=== PATIENT | male | born 1935 | race Caucasian/White ===

== ENCOUNTER 2022-05-26 10:34 | Inpatient (IN) | payer MEDICARE, SELFPAY ==
--- NOTE | ~2022-05-26 | US_ITS ---
EXAMINATION: US renal BI DATE: 06/04/2022 13:32 INDICATION: janine TECHNIQUE: Multiple grayscale and Doppler ultrasound images of the kidneys were obtained. COMPARISON: MRI abdomen 05/29/2022, CT abdomen and pelvis 05/26/2022 FINDINGS: The right kidney measures 12.4 x 8.5 x 9.3 cm., Which is an overestimate of renal size as it included the large parapelvic renal cysts. Approximately 2 cm simple right upper pole cyst. The left kidney m easures 12.5 x 5.8 x 5.8 cm. Right renal atrophy and cortical thinning, with normal parenchymal echog enicity. The left kidney demonstrates normal parenchymal echogenicity. There is no hydronephrosis. Th e bladder wall is thickened. Bilateral ureteral jets. Enlarged prostate. IMPRESSION: Large right renal parapelvic cysts and a simple upper pole cyst. Right renal atrophy/cortical thinnin g. The left kidney is sonographically normal. Bladder wall thickening likely secondary to outlet comp romise from prostatomegaly. Reviewed, dictated and finalized at location K. F OPERATOR IMPRESSION: Large right renal parapelvic cysts and a simple upper pole cyst. Right renal at rophy/cortical thinning. The left kidney is sonographically normal. Bladder wal l thickening likely secondary to outlet compromise from prostatomegaly.
--- NOTE | ~2022-05-26 | US_ITS ---
Limited Abdominal Sonogram: Real-time sonographic imaging of the right upper quadrant was performed. Clinical History: Jaundice Findings: There is diffuse intrahepatic biliary dilatation. No well delineated hepatic mass identifie d. Main portal vein demonstrates normal direction of flow. The gallbladder is moderately distended, a nd and filled with sludge and small stones. No definite gallbladder wall thickening. The common bile duct measures 9 mm. The visualized pancreas, aorta, and IVC are unremarkable. Impression: Intrahepatic biliary dilatation. Obstructing biliary/hepatic/pancreatic mass is a consideration. CT s can has already been ordered for this patient. Gallbladder sludge and small stones. Reviewed, dictated and finalized at location M. OOR EMERGENCY CARE TECHNICIAN Impression: Intrahepatic biliary dilatation. Obstructing biliary/hepatic/pancreatic mass is a consideration. CT scan has already been ordered for this patient. Gallbladder sludge and small stones.
--- NOTE | ~2022-05-26 | MR_ITS ---
EXAMINATION: MR MRCP wo/w con/w 3D wo ind DATE: 05/29/2022 10:38 INDICATION: Obstructed, bile duct, jaundice TECHNIQUE: Magnetic resonance imaging (MRI) of the abdomen was performed without and with intravenous contrast. Sequences included coronal T2-weighted SS-FSE ARC, coronal T2-weighted FS SS-FSE, coronal T2-weighted 2D FS FIESTA, Water:Coronal LAVA-Flex, sagittal T2-weighted SS-FSE ARC, axial SSFSE ARC, axial 3D DualEcho, axial DWI B=600, axial T1-weighted LAVA, FAT:Coronal LAVA-Flex, and coronal in and opposed phase LAVA-Flex. Thick-slab T2-weighted FRFSE-XL images were obtained for magnetic resonance cholangiopancreatography (MRCP). Maximum intensity projection 3-D reconstructions of the volumetric data were created by the technologist. Postcontrast sequences included a time course of axial T1-weig hted LAVA, FAT:Coronal LAVA-Flex, coronal in and opposed phase LAVA-Flex, and Water:Coronal LAVA-Flex . COMPARISON: CT, 05/26/2022 CONTRAST: Multihance, 20 cc FINDINGS: ABDOMEN MRI: There is an ill-defined T1 hypointense, slightly T2 hyperintense infiltrative mass at th e liver hilum which measures approximately 6.3 cm. The mass infiltrates into the retroperitoneum and encases the common hepatic artery and the gastroduodenal artery, and abuts or encases the right renal artery. The mass abuts the inferior vena cava. Although limited by motion artifact, there appears to be mass effect and/or encasement of the portal vein. The spleen, pancreas, and adrenal glands are no rmal. The gallbladder is hypointense T2-weighted images, likely due to sludge. There are peripelvic c ysts of the right kidney. Cysts of the kidneys measure up to 2 cm on the right. There are peritoneal soft tissue masses with a large number of masses seen in the left upper quadrant. ABDOMEN MRCP: There is marked intrahepatic biliary dilatation caused by the mass of the liver hilum. The pancreatic duct is normal in course and caliber. IMPRESSION: 1. Infiltrating mass of the liver hilum causing marked intrahepatic biliary dilatation. Findings susp icious for cholangiocarcinoma. 2. Peritoneal carcinomatosis with multiple left upper quadrant masses. Reviewed, dictated and finalized at location B. MOBILE DRIVERS IMPRESSION: 1. Infiltrating mass of the liver hilum causing marked intrahepatic biliary dil atation. Findings suspicious for cholangiocarcinoma. 2. Peritoneal carcinomatosis with multiple left upper quadrant masses.
--- NOTE | ~2022-05-26 | CT_ITS ---
EXAMINATION: CT abdomen pelvis wo con DATE: 05/26/2022 14:11 INDICATION: Jaundice. TECHNIQUE: Computed tomography (CT) of the abdomen and pelvis was performed without intravenous contr ast. Automated exposure control and iterative reconstruction technique were employed. The dose-length product was 1230.35 mGy-cm. COMPARISON: CT abdomen and pelvis 02/18/2016 FINDINGS: The visualized portions of the lung bases demonstrate peripheral septal thickening, likely mild chronic interstitial lung disease. There is a chronic 5 mm nodule in right lower lobe, likely be nign. No pleural effusion. The heart size is normal. There are coronary artery calcifications. There are calcifications of the coronary arteries. No pericardial effusion. There are chronic cysts in left hepatic lobe measuring up to 2.7 cm. There are calcifications associated with cysts. There is severe intrahepatic biliary duct dilatation with areas of intrahepatic biliary stenosis. The common duct is dilated to 16 mm. There is hyperdense material in the gallbladder, likely sludge. The gallbladder is normal in size. The spleen, pancreas, and adrenal glands are normal. There are cysts in the kidneys measuring up to 7.4 cm on the right. There is cortical thinning in right kidney. 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 The prostate is moderately enlarged. There is diverticulosis of the colon without evidence of diverticulitis. There are no dilated loops of bowel. The appendix is no t visualized. There is a left inguinal hernia containing fat. There are multiple peritoneal masses me asuring up to 2.8 x 2.1 cm, worst in left upper quadrant. There is a 2.8 x 1.9 cm mass posterior to t he inferior vena cava. There is periportal lymphadenopathy. There is no free intraperitoneal fluid. T here is a total right hip arthroplasty. There is severe lumbar spondylosis. There are bridging endpla te osteophytes at multiple levels in the thoracic spine, consistent with diffuse idiopathic skeletal hyperostosis (DISH). IMPRESSION: 1. Peritoneal carcinomatosis. 2. Severe intrahepatic biliary duct dilatation. Areas of intrahepatic biliary stenosis suggest occult malignancy. Extrahepatic bile duct dilatation. Consider MRCP without and with contrast. 3. Periportal lymphadenopathy. Reviewed, dictated and finalized at location A. AGE MACHINE OPERATOR IMPRESSION: 1. Peritoneal carcinomatosis. 2. Severe intrahepatic biliary duct dilatation. Areas of intrahepatic biliary s tenosis suggest occult malignancy. Extrahepatic bile duct dilatation. Consider MRCP without and with contrast. 3. Periportal lymphadenopathy.
[2022-05-26 10:58] VITALS: BP 117/61; PULSE 111; RESP 18; TEMP 36.4; O2SAT 100
[2022-05-26 11:57] LABS: Basophils Absolute Auto 0.1 K/mm3 (0.0-0.1); Basophils Percent Auto 0.8 % (0.2-1.2); Eosinophils Percent Auto 0.1 % (0-4.4); Hematocrit 34.9 % (42.0-52.0); Hemoglobin 11.6 g/dL (14.0-18.0); Immature Granulocyte Percent A 1.4 % (0-0.5); Lymphocytes Absolute Auto 1.38 K/mm3 (0.9-3.2); Mean Corpuscular HGB Conc 33.2 g/dl (32-36); Mean Corpuscular Hemoglobin 30.1 pg (26-34); Mean Corpuscular Volume 90.4 fl (80-100); Mean Platelet Volume 10.5 fl (7.4-10.4); Monocytes Absolute Auto 0.8 K/mm3 (0.1-0.6); Monocytes Percent Auto 10.7 % (2.6-8.5); Platelet Count Result 316 k/mm3 (150-375); Red Blood Count 3.86 M/mm3 (4.6-6.20); Red Cell Distribution Width 21.6 % (11.5-14.5); White Blood Count 7.3 K/mm3 (4.5-10.0)
[2022-05-26 12:10] LABS: Add Urine Microscopic? YES; Appearance Urine Clear (Clear); Color Urine Orange (Yellow); Mucus Urine Rare /lpf; RBC Urine 0-2 /hpf (0-2); WBC Urine 0-3 /hpf
[2022-05-26 12:16] LABS: Alanine Aminotransferase 430 U/L (6-50); Albumin Level 3.9 g/dL (3.5-5.1); Alkaline Phosphatase 1118 U/L (38-126); Anion Gap 9 mmol/L (8-16); Aspartate Amino Transferase 316 U/L (17-59); Bilirubin,Total 18.9 mg/dL (0.2-1.3); Blood Urea Nitrogen 28 mg/dL (9-20); Calcium 9.1 mg/dL (8.4-10.2); Carbon Dioxide 22 mmol/L (22-30); Chloride 98 mmol/L (98-107); Estimated CRCL calculation 48 ml/min; Estimated Glomerular Filt Rate 57; Glucose 133 mg/dL (65-110); Lipase 58 U/L (23-300); Potassium 3.5 mmol/L (3.4-5.0); Sodium 129 mmol/L (137-145)
--- NOTE | 2022-05-26 14:04 | ED.RECABL ---
HPI - Recheck/Abnormal Lab/Rx General Chief Complaint: Recheck/Abnormal Lab/Rx Stated Complaint: elevated liver enzymes Time Seen by Provider: 05/26/22 13:20 History of Present Illness HPI narrative: Pt presents for evaluation of elevated liver enzymes. Pt says he first noticed his urine being yellow a month ago. Pt was put on bactrim for presumed UTI and had allergic reaction and his lips swelled up and the antibiotic was discontinued. Pt says the yellow skin and itching worsened. Pt denies pain or fever. Pt sent to ER after outpatient labs showed elevated LFT's Related Data Home Medications Medication Instructions Recorded Confirmed vit C 50 mg-E 15 unit-zinc cit 4.5 2 tablet PO DAILY 06/17/19 05/26/22 mg-lutein 2.5 mg-zeaxan chew tablet ([employer]) finasteride 5 mg tablet 5 mg PO DAILY 05/26/22 05/26/22 lisinopril 20 1 tablet PO DAILY 05/26/22 05/26/22 mg-hydrochlorothiazide 12.5 mg tablet Allergies Allergy/AdvReac Type Severity Reaction Status Date / Time Sulfa (Sulfonamide Allergy Severe Swelling Verified 05/26/22 06:59 Antibiotics) of Lip/Tongue/Throat Iodinated Contrast Media Allergy Mild lip Verified 05/26/22 06:59 swelling iodine AdvReac Unknown lip Verified 05/26/22 06:59 swelling tramadol AdvReac Itching Verified 05/26/22 06:59 Review of Systems Review of Systems: All systems reviewed & are unremarkable except as noted in HPI and below PMFSH Past Medical History Medical History Chronic kidney disease, stage III (moderate) Essential hypertension Mixed hyperlipidemia Presence of intraocular lens Surgical History Surgical History Hx of cataract removal with insertion of prosthetic lens Family History Family History Father Patient's father is in good health Acute myocardial infarction Sibling Patient's sister is in good health Mother Family history of cardiovascular disease Social History Social History (Updated 05/26/22 @ 07:06 by Alvina Botello CNA) Smoking status: Former smoker Tobacco type: cigarettes Second hand tobacco smoke exposure: No Smoking end date: 04/23/89 Alcohol intake: never Substance use: never Lack of Transportation: No Lack of Food: Never True Current Housing: I Have Housing Concerned About Future Housing: No Difficulty Paying Gas/Electric Bills: No Difficulty Paying for Meds: No Currently Unemployed: No Education: Trade/Vocational Certificate Difficulty w/ Childcare or Family Care: No Living arrangements: with family Occupation/Education: retired Gender identity (if verbalized by the patient): Male Sexual Orientation (if Verbalized by the Patient): Straight or Heterosexual Spiritual care concerns: No Exam Const: General: healthy appearing and no acute distress Nutritional Appearance: well nourished Orientation/consciousness: patient oriented x3 Limitations: no limitations HENMT: Head: normal to inspection Mouth: Yes Normal oral and palatal mucosa present Throat: posterior oropharynx normal Eyes: Conjunctivae: conjunctival abnormality (jaundiced) Pupils: Equal, round and reactive pupils present EOM: EOMs intact bilaterally Neck: Neck: normal visual inspection and no lymphadenopathy Resp: Effort & Inspection: normal respiratory effort Auscultation: clear to auscultation bilaterally Cardio: Rate: regular rate Rhythm: regular rhythm GI: GI Palp: Yes Soft to palpation and No Tenderness to palpation present (GI) Auscultation: normal bowel sounds Skin: General skin exam: jaundice Rashes: no rashes Wounds: no wounds Neuro: General: patient oriented x3, moves all extremities, no meningeal signs, no focal motor deficits and CN's II-XI intact bilaterally Cranial nerves: Yes Nystagmus not present Speech: normal s
[2022-05-26 15:48] LABS: Influenza A QL RT-PCR Negative (Negative); Influenza B QL RT-PCR Negative (Negative); SARS-CoV-2 RNA PCR Negative
--- NOTE | 2022-05-26 17:00 | PM.IMHP ---
H&P: HPI History of Present Illness Date/Time: 05/26/22 17:00 Chief Complaint: Elevated liver enzymes. Narrative: This is a very pleasant 87-year-old male with hypertension, chronic kidney disease, and benign prostatic hyperplasia who presented to the emergency department for evaluation of elevated liver enzymes. Patient provides the following history. About a month or so he noticed that his urine was darker than normal and he saw Dr. Bonds a couple of weeks ago for evaluation of the same. He was apparently diagnosed with urinary tract infection and prescribed Bactrim which he took for at least 5 days before he developed swelling of the lips. The antibiotic was discontinued and does not look like he was started on a new medication. Since that time he has continued to notice that his urine is dark and more recently he and his have noticed that his skin has turned yellow. This prompted labs to be done today and he was found to have significant elevation in his bilirubin and alkaline phosphatase. He has had some pruritus and is taking Benadryl for that at home. He has not had abdominal pain, bloating, nausea, vomiting, or diarrhea. 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 No significant bleeding or bruising. Weight has remained stable. Appetite is fine. Labs in the ED confirmed significantly elevated LFTs with a total bilirubin of 18.9, AST 316, ALT 430, alkaline phosphatase 1118. CT of the abdomen pelvis showed severe intrahepatic biliary duct dilatation with areas of biliary stenosis suggestive of occult malignancy, extrahepatic bile duct dilatation, and peritoneal carcinomatosis. Transfer was initiated to tertiary care facility though estimated wait time for a bed is between 5 to 7 days. Review of Systems Review of Systems: Twelve systems were reviewed and are negative except for as per HPI. [facility] Past Medical History Medical History (Updated 05/26/22 @ 22:02 by Julissa Godwin PA-C) Arthritis Benign prostatic hyperplasia Chronic kidney disease, stage III (moderate) Essential hypertension Mixed hyperlipidemia Surgical History Surgical History (Updated 05/26/22 @ 22:02 by Julissa Godwin PA-C) History of appendectomy History of cataract extraction with lens replacement History of lumbar surgery History of total right hip arthroplasty Family History Family History Father Patient's father is in good health Acute myocardial infarction Sibling Patient's sister is in good health Mother Family history of cardiovascular disease Social History Social History (Updated 05/26/22 @ 21:58 by Julissa Godwin PA-C) Social History: Surrogate medical decision maker: Mikki Garcia, spouse. Code status: Full code. Smoking status: Former smoker Tobacco type: cigarettes Second hand tobacco smoke exposure: No Smoking end date: 04/23/89 Alcohol intake: never Substance use: never Lack of Transportation: No Lack of Food: Never True Current Housing: I Have Housing Concerned About Future Housing: No Difficulty Paying Gas/Electric Bills: No Difficulty Paying for Meds: No Currently Unemployed: No Education: Trade/Vocational Certificate Difficulty w/ Childcare or Family Care: No Living arrangements: with family Additional living arrangements comments: Lives with in [place]. Enjoys woodworking and making furniture. Occupation/Education: retired Spiritual care concerns: No Meds Home Medications and Allergies Home Medications Medication Instructions Recorded Confirmed Type vit C 50 mg-E 15 unit-zinc cit 4.5 2 tablet PO DAILY 06/17/19 05/26/22 History mg-lutein 2.5 mg-zeaxan chew tablet ([employer]) finasteride 5 mg tablet 5 mg PO DAILY 05/26/22 05/26/22 History lisinopril 20 1 tablet PO DAILY 05/26/22 05/26/22 History mg-hydrochlorothiazide 12.5 mg
--- NOTE | 2022-05-26 17:06 | PC.NURSE ---
Spoke to Xiomara with [facility] transport team. Patient is on waiting list and is unknown when a bed will be available. Adrianna Charge nurse notified
--- NOTE | 2022-05-26 19:40 | ADMGEN ---
This patient, Glenis Garcia, was admitted to Medical Room 252-01. Patient/family oriented to hospital policies and general routines including ID bracelet, bed and alarms, visiting hours, pain management, procedures, bathroom and other care routines, personal items, smoking policy, room service/diet, and visiting hours. Information on how to activate the Rapid Response Team has been discussed. Patient/Family are encouraged to report perceived risks to care and to ask questions if they do not understand what they are told or what they should do.
--- NOTE | 2022-05-26 19:51 | PC.NURSE ---
Patient accepted at both [facility] AND [facility]. On waitlist...approximate waitlist time for both facilities is 7 days.
[2022-05-26 21:02] VITALS: BP 127/72; PULSE 88; RESP 16; TEMP 36.7; O2SAT 100
[2022-05-26 21:03] VITALS: BMI 33.8
[2022-05-27 01:41] LABS: Sodium Urine Random 73 meq/L
[2022-05-27 01:44] LABS: Creatinine Urine 86.9 mg/dL; Urea Random Urine 681 MG/DL
[2022-05-27] MEDS: diphenhydrAMINE HCl CAP 25 MG CAPSULE PO ×3 (03:55→23:00)
[2022-05-27 06:00] VITALS: BP 104/60; PULSE 82; RESP 20; TEMP 36.7; O2SAT 100
[2022-05-27 06:20] LABS: Hemoglobin 11.1 g/dL (14.0-18.0); Mean Corpuscular HGB Conc 33.6 g/dl (32-36); Mean Corpuscular Hemoglobin 30.2 pg (26-34); Mean Corpuscular Volume 89.7 fl (80-100); Mean Platelet Volume 10.6 fl (7.4-10.4); Platelet Count Result 321 k/mm3 (150-375); Red Blood Count 3.68 M/mm3 (4.6-6.20); Red Cell Distribution Width 21.8 % (11.5-14.5); White Blood Count 6.8 K/mm3 (4.5-10.0)
[2022-05-27 06:27] LABS: INR 1.1
[2022-05-27 06:33] LABS: Alanine Aminotransferase 428 U/L (6-50); Albumin Level 3.6 g/dL (3.5-5.1); Alkaline Phosphatase 1207 U/L (38-126); Anion Gap 9 mmol/L (8-16); Aspartate Amino Transferase 301 U/L (17-59); Bilirubin,Total 18.8 mg/dL (0.2-1.3); Blood Urea Nitrogen 24 mg/dL (9-20); Carbon Dioxide 24 mmol/L (22-30); Chloride 102 mmol/L (98-107); Estimated CRCL calculation 51 ml/min; Estimated Glomerular Filt Rate > 60; Glucose 95 mg/dL (65-110); Magnesium 1.9 mg/dL (1.6-2.3); Potassium 3.8 mmol/L (3.4-5.0); Sodium 135 mmol/L (137-145)
[2022-05-27 06:58] LABS: Carcinoembryonic Antigen 2.4 ng/mL (0.0-3.0)
[2022-05-27 07:17] LABS: Hepatitis B Surface Antigen Negative (Negative)
[2022-05-27 07:22] LABS: HAV RESULT Negative (Negative); Hepatitis B Core IgM Result Negative (Negative)
[2022-05-27 07:34] LABS: Hepatitis C Virus Antibody Negative (Negative)
[2022-05-27 08:00] VITALS: PULSE 82; RESP 20; O2SAT 100
[2022-05-27] MEDS: lisinopriL 20 MG TABLET PO (08:48)
[2022-05-27] MEDS: FINASTERIDE 5 MG TABLET PO (08:48)
[2022-05-27] MEDS: OPTI-GEN TAB 2 TABLET PO (08:48)
[2022-05-27 14:30] VITALS: BP 106/58; PULSE 81; RESP 16; TEMP 36.4; O2SAT 100
--- NOTE | 2022-05-27 16:19 | PM.IMPN ---
Progress Note: A&P Assessment and Plan (1) Obstructive jaundice: Code(s): K83.1 - Obstruction of bile duct Status: Acute Assessment and Plan: The patient developed pruritis, jaundice and greey colored stools. No weight loss. He was sent to the emergency department after discovering elevated liver enzymes. Liver tests were normal in February. TB 18.9, AST 316, ALT [address] abdomen/pelvis shows peritoneal carcinomatosis and severe intra- and extrahepatic ductal dilation. Rt UQ US showing similar findings Concerning for occult biliary malignancy. Transfer was initiated to a tertiary care facility for hepatobiliary consult and awaiting bed availablility GI consultation here (not available this weekend, will need to be consulted Sunday morning). NPO after midnight on Sunday for possible ERCP on Sunday. 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 Will add cholestyramine. Benadryl available as needed. (4) Transaminitis: Code(s): R74.01 - Elevation of levels of liver transaminase levels Status: Acute Assessment and Plan: Related to above (5) Essential hypertension: Code(s): I10 - Essential (primary) hypertension Status: Acute Assessment and Plan: Patient's blood pressure was reviewed on 2/ Blood pressure soft at times. HCTZ on hold. Will continue current medications. Place parameters on Lisinopril (6) Benign prostatic hyperplasia: Code(s): N40.0 - Benign prostatic hyperplasia without lower urinary tract symptoms Status: Acute Assessment and Plan: Stable. Continue Proscar. Plan DVT Prophylaxis - Lovenox Subjective Date/time seen: 05/27/22 16:19 Interval history: 87yo male with CKD, BPH and HTN here for painless jaundice. Patient has been having martinez colored stools, jaundice and pruritis. No CP or SOB. Exam Narrative: AF 106/58 81 16 100% ra Gen - NARD Chest - CTA bilaterally, nml RR CV - RRR S1/S2 Abd - Soft, NT/ND, Positive BS Ext - No pedal edema Psych - Nml mood and affect. ABSENTEE-SHAWNEE Skin - Warm and dry, jaundiced Objective Data Vital Signs Vital Signs: Vital Signs - 24 hr 05/26/22 21:02 05/26/22 20:00 05/27/22 06:00 Temperature 98.1 F 98.1 F Pulse Rate 88 82 Respiratory Rate 16 20 Blood Pressure 127/72 104/60 Pulse Oximetry 100 100 Oxygen Delivery Room Air 05/27/22 08:00 05/27/22 14:30 Temperature 97.6 F Pulse Rate 82 81 Respiratory Rate 20 16 Blood Pressure 106/58 L Pulse Oximetry 100 100 Oxygen Delivery Room Air Intake/Output Intake/Output: Intake & Output 05/24/22 05/25/22 05/26/22 05/27/22 23:59 23:59 23:59 23:59 Intake Total 500 460 Output Total 200 Balance 300 460 Meds/Results Medications: Active Medications Generic Name Dose Route Start Last Admin Trade Name Emmanuelq PRN Reason Stop Dose Admin Diphenhydramine HCl 25 mg 05/26/22 22:09 05/27/22 03:55 Diphenhydramine Hcl Cap 25 Mg Capsule PO 25 mg Q6H PRN Administration Itching Finasteride 5 mg 05/27/22 09:00 05/27/22 08:48 Finasteride 5 Mg Tablet PO 5 mg DAILY LUCINDA Administration Hydrochlorothiazide 12.5 mg 05/27/22 09:00 Hydrochlorothiazide 12.5 Mg Capsule PO DAILY LUCINDA Lisinopril 20 mg 05/27/22 09:00 05/27/22 08:48 Lisinopril 20 Mg Tablet PO 06/26/22 08:59 20 mg DAILY LUCINDA Administration Multivitamins/Minerals 2 tablet 05/27/22 09:00 05/27/22 08:48 Opti-Gen Tab PO 06/26/22 08:59 2
[2022-05-27] MEDS: ENOXAPARIN 40 MG/0.4 ML SYRINGE SUB-Q (18:01)
[2022-05-27] MEDS: CHOLESTYRAMINE (W/ SUGAR) 4 GM POWD.PACK PO (18:01)
[2022-05-27 22:00] VITALS: BP 135/77; PULSE 87; RESP 14; TEMP 37.3; O2SAT 100
[2022-05-28] MEDS: diphenhydrAMINE HCl CAP 25 MG CAPSULE PO ×3 (06:00→23:13)
[2022-05-28 06:17] LABS: Basophils Absolute Auto 0.1 K/mm3 (0.0-0.1); Eosinophils Percent Auto 0.7 % (0-4.4); Hematocrit 29.8 % (42.0-52.0); Hemoglobin 10.1 g/dL (14.0-18.0); Immature Granulocyte Absolute 0.09 K/mm3 (0.00-0.031); Immature Granulocyte Percent A 1.5 % (0-0.5); Lymphocytes Absolute Auto 1.28 K/mm3 (0.9-3.2); Mean Corpuscular HGB Conc 33.9 g/dl (32-36); Mean Corpuscular Hemoglobin 29.7 pg (26-34); Mean Corpuscular Volume 87.6 fl (80-100); Mean Platelet Volume 10.6 fl (7.4-10.4); Monocytes Absolute Auto 0.9 K/mm3 (0.1-0.6); Monocytes Percent Auto 13.9 % (2.6-8.5); Neutrophils Absolute Auto 3.8 K/mm3 (1.3-6.7); Neutrophils Percent Auto 61.9 % (45.5-73.1); Platelet Count Result 298 k/mm3 (150-375); Red Cell Distribution Width 22.2 % (11.5-14.5); White Blood Count 6.1 K/mm3 (4.5-10.0)
[2022-05-28 06:23] LABS: Alanine Aminotransferase 347 U/L (6-50); Albumin Level 3.1 g/dL (3.5-5.1); Alkaline Phosphatase 1016 U/L (38-126); Anion Gap 7 mmol/L (8-16); Aspartate Amino Transferase 268 U/L (17-59); Bilirubin,Total 17.2 mg/dL (0.2-1.3); Blood Urea Nitrogen 24 mg/dL (9-20); Calcium 8.5 mg/dL (8.4-10.2); Carbon Dioxide 23 mmol/L (22-30); Chloride 102 mmol/L (98-107); Estimated CRCL calculation 51 ml/min; Estimated Glomerular Filt Rate > 60; Glucose 87 mg/dL (65-110); Potassium 3.7 mmol/L (3.4-5.0); Sodium 132 mmol/L (137-145)
[2022-05-28 06:46] LABS: Platelet Estimate Adequate (Adequate); Schistocytes None Seen (NORMAL); Spherocytes 1+ (NORMAL); Target Cells 1+ (NORMAL)
--- NOTE | 2022-05-28 09:13 | PC.NURSE ---
This nurse was instructed by Dr. mobley to hold patient's AM Lisinopril due to soft blood pressures.
[2022-05-28] MEDS: FINASTERIDE 5 MG TABLET PO (09:16)
[2022-05-28] MEDS: OPTI-GEN TAB 2 TABLET PO (09:16)
[2022-05-28] MEDS: CHOLESTYRAMINE (W/ SUGAR) 4 GM POWD.PACK PO ×2 (10:18→17:19)
[2022-05-28 10:39] VITALS: O2SAT 98
--- NOTE | 2022-05-28 11:43 | PM.IMPN ---
Progress Note: A&P Assessment and Plan (1) Obstructive jaundice: Code(s): K83.1 - Obstruction of bile duct Status: Acute Assessment and Plan: The patient developed pruritis, jaundice and bacon colored stools. No weight loss. He was sent to the emergency department after discovering elevated liver enzymes. Liver tests were normal in February. TB 18.9, AST 316, ALT [address] abdomen/pelvis shows peritoneal carcinomatosis and severe intra- and extrahepatic ductal dilation. RUQ US showing similar findings Concerning for occult biliary malignancy. Transfer was initiated to a tertiary care facility for hepatobiliary consult and awaiting bed availability Proceed with MRCP to further assess anatomy. GI consultation here (not available this weekend, will need to be consulted Sunday morning). NPO after midnight on Sunday for possible ERCP on Sunday. 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 Continue cholestyramine. Benadryl available as needed. (4) Transaminitis: Code(s): R74.01 - Elevation of levels of liver transaminase levels Status: Acute Assessment and Plan: Related to above and levels about the same (5) Essential hypertension: Code(s): I10 - Essential (primary) hypertension Status: Acute Assessment and Plan: Patient's blood pressure was reviewed on 05/28 Blood pressure soft at times. HCTZ stopped. Will cut back Lisinopril (6) Benign prostatic hyperplasia: Code(s): N40.0 - Benign prostatic hyperplasia without lower urinary tract symptoms Status: Acute Assessment and Plan: Stable. Continue Proscar. Plan DVT Prophylaxis - Lovenox Subjective Date/time seen: 05/28/22 11:43 Interval history: 87yo male with CKD, BPH and HTN here for painless jaundice. No issues overnight. pruritus is about the same. No chest pain or shortness of breath. No abdominal pain. Exam Narrative: AF 135/77 87 14 98% ra Gen - NARD Chest - CTA bilaterally, nml RR CV - RRR S1/S2 Abd - Soft, NT/ND, Positive BS Ext - No pedal edema Psych - Nml mood and affect. MODOC Skin - Warm and dry, jaundiced Objective Data Vital Signs Vital Signs: Vital Signs - 24 hr 05/27/22 14:30 05/27/22 22:00 05/28/22 10:27 Temperature 97.6 F 99.1 F Pulse Rate 81 87 Respiratory Rate 16 14 Blood Pressure 106/58 L 135/77 Pulse Oximetry 100 100 Oxygen Delivery Room Air 05/28/22 10:39 Temperature Pulse Rate Respiratory Rate Blood Pressure Pulse Oximetry 98 Oxygen Delivery Room Air Intake/Output Intake/Output: Intake & Output 05/25/22 05/26/22 05/27/22 05/28/22 23:59 23:59 23:59 23:59 Intake Total 500 2140 340 Output Total 200 Balance 300 2140 340 Meds/Results Medications: Active Medications Generic Name Dose Route Start Last Admin Trade Name Freq PRN Reason Stop Dose Admin Cholestyramine Resin 4 gm 05/27/22 18:00 05/28/22 10:18 Cholestyramine (W/ Sugar) 4 Gm Powd.Pack PO 4 gm BID@1000,1800 LUCINDA Administration Diphenhydramine HCl 25 mg 05/26/22 22:09 05/28/22 06:00 Diphenhydramine Hcl Cap 25 Mg Capsule PO 25 mg Q6H PRN Administration Itching Enoxaparin Sodium 40 mg 05/28/22 17:00 Enoxaparin 40 Mg/0.4 Ml Syringe SUB-Q DAILY@1700 LUCINDA Finasteride 5 mg 05/27/22 09:00 05/28/22 09:16 Finasteride 5 Mg Tablet PO 5 mg DAILY LUCINDA Administration Lisinopril 20 mg 05/27/22 09:00 05/28/22 09:12 Lisinopril 20 Mg Tablet PO 06/26/22 08:
[2022-05-28 11:51] VITALS: BP 130/67; PULSE 81; RESP 18; TEMP 36.7; O2SAT 100
[2022-05-28] MEDS: lisinopriL 10 MG TABLET PO (13:05)
[2022-05-28 15:00] VITALS: BP 116/73; PULSE 69; RESP 16; TEMP 36.6; O2SAT 100
[2022-05-28 20:27] VITALS: BP 119/73; PULSE 80; RESP 20; TEMP 36.8; O2SAT 98
[2022-05-29 05:13] VITALS: BP 116/67; PULSE 69; RESP 20; TEMP 36.1; O2SAT 100
[2022-05-29 05:35] LABS: Basophils Absolute Auto 0.1 K/mm3 (0.0-0.1); Basophils Percent Auto 0.7 % (0.2-1.2); Eosinophils Absolute Auto 0.1 K/mm3 (0-0.3); Eosinophils Percent Auto 0.7 % (0-4.4); Hematocrit 30.5 % (42.0-52.0); Hemoglobin 10.2 g/dL (14.0-18.0); Immature Granulocyte Absolute 0.15 K/mm3 (0.00-0.031); Immature Granulocyte Percent A 2.2 % (0-0.5); Lymphocytes Absolute Auto 1.32 K/mm3 (0.9-3.2); Lymphocytes Percent Auto 19.6 % (18.3-44.2); Mean Corpuscular HGB Conc 33.4 g/dl (32-36); Mean Corpuscular Hemoglobin 30.2 pg (26-34); Mean Corpuscular Volume 90.2 fl (80-100); Mean Platelet Volume 10.1 fl (7.4-10.4); Monocytes Absolute Auto 0.9 K/mm3 (0.1-0.6); Monocytes Percent Auto 13.7 % (2.6-8.5); Neutrophils Absolute Auto 4.2 K/mm3 (1.3-6.7); Neutrophils Percent Auto 63.1 % (45.5-73.1); Platelet Count Result 287 k/mm3 (150-375); Red Blood Count 3.38 M/mm3 (4.6-6.20); Red Cell Distribution Width 22.4 % (11.5-14.5); White Blood Count 6.7 K/mm3 (4.5-10.0)
[2022-05-29 05:52] LABS: Platelet Estimate Adequate (Adequate)
[2022-05-29 05:53] LABS: Poikilocytosis 1+ (NORMAL); Target Cells 2+ (NORMAL)
[2022-05-29 05:55] LABS: Alanine Aminotransferase 356 U/L (6-50); Albumin Level 3.2 g/dL (3.5-5.1); Alkaline Phosphatase 1081 U/L (38-126); Anion Gap 7 mmol/L (8-16); Aspartate Amino Transferase 269 U/L (17-59); Bilirubin,Total 17.4 mg/dL (0.2-1.3); Blood Urea Nitrogen 24 mg/dL (9-20); Calcium 8.4 mg/dL (8.4-10.2); Carbon Dioxide 23 mmol/L (22-30); Chloride 102 mmol/L (98-107); Estimated CRCL calculation 47 ml/min; Estimated Glomerular Filt Rate 57; Glucose 88 mg/dL (65-110); Sodium 132 mmol/L (137-145)
[2022-05-29 05:59] LABS: Schistocytes None Seen (NORMAL)
[2022-05-29] MEDS: lisinopriL 10 MG TABLET PO (08:23)
[2022-05-29] MEDS: OPTI-GEN TAB 2 TABLET PO (08:23)
[2022-05-29] MEDS: FINASTERIDE 5 MG TABLET PO (08:23)
[2022-05-29 08:30] VITALS: BP 120/66
--- NOTE | 2022-05-29 13:09 | WPDGICN ---
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 Etiology unclear. Hopefully with CT guidance of percutaneous biopsy can be arranged. (2) Jaundice: Code(s): R17 - Unspecified jaundice Status: Acute Assessment and Plan: Jaundice appears to be from lesions within the liver. MRCP suggest a liver mass impinging on the hilum of the liver. 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 I do not do stenting at this level within the liver. Recommend transfer to tertiary care [facility] service for ERCP brushings of this lesion, possible biopsy. And stenting if at all possible. I understand this is in progress referral to tertiary care center. (3) Dilated bile duct: Code(s): K83.8 - Other specified diseases of biliary tract Status: Acute Assessment and Plan: Biliary tree appears dilated proximal to the liver hilum in the proximal bile ducts. Most likely from impingement of tumor mass at the hilum. If ERCP and stenting not feasible then external percutaneous biliary drain may be required. GI Consult Note Consult date/time: 05/29/22 13:09 Reason for consult: Jaundice and abnormal CT scan HPI: Glenis Garcia is a 87 year old male I am asked to see because of jaundiced in abnormal CT scan. Patient reports over the last 4 weeks he has noticed yellow skin associated with dark urine. Initially presented to primary care for possible urinary tract infection and saw Urology Service. Laboratory testing ultimately revealed elevated LFTs and for this reason sent to the ER and admitted to the hospital. CT scan imaging reveals carcinomatosis. Liver mass is identified. MRCP today reveals liver mass at the hilum of the liver impinging on the bile ducts with more proximal bile duct dilatation. He also has evidence for carcinomatosis. Patient otherwise is eating well. His bowel habits have remained normal although stools are somewhat light in appearance. Denies any significant abdominal pain he has had only mild weight loss. No fevers are noted. Review of Systems Review of Systems: Review of systems noncontributory. [facility] Past Medical History Medical History (Updated 05/27/22 @ 16:44 by Aquiles Jeffrey MD) Arthritis Benign prostatic hyperplasia Chronic kidney disease, stage III (moderate) Essential hypertension Mixed hyperlipidemia Surgical History Surgical History (Updated 05/26/22 @ 22:02 by Julissa Godwin PA-C) History of appendectomy History of cataract extraction with lens replacement History of lumbar surgery History of total right hip arthroplasty Family History Family History Father Patient's father is in good health Acute myocardial infarction Sibling Patient's sister is in good health Mother Family history of cardiovascular disease Social History Social History (Updated 05/26/22 @ 21:58 by Julissa Godwin PA-C) Social History: Surrogate medical decision maker: Nataliiaamparo Garcia, spouse. Code status: Full code. Smoking status: Former smoker Tobacco type: cigarettes Second hand tobacco smoke exposure: No Smoking end date: 04/23/89 Alcohol intake: never Substance use: never Lack of Transportation: No Lack of Food: Never True Current Housing: I Have Housing Concerned About Future Housing: No Difficulty Paying Gas/Electric Bills: No Difficulty Paying for Meds: No Currently Unemployed: No Education: Trade/Vocational Certificate Difficulty w/ Childcare or Family Care: No Living arrangements: with family Additional living arrangements comments: Lives with in [place]. Enjoys woodworking and making
[2022-05-29 14:00] VITALS: BP 116/64; PULSE 75; RESP 20; TEMP 36.3; O2SAT 100
--- NOTE | 2022-05-29 16:10 | PM.IMPN ---
Progress Note: A&P Assessment and Plan (1) Obstructive jaundice: Code(s): K83.1 - Obstruction of bile duct Status: Acute Assessment and Plan: The patient developed pruritis, jaundice and bacon colored stools. No weight loss. He was sent to the emergency department after discovering elevated liver enzymes. Liver tests were normal in February. TB 18.9, AST 316, ALT [address] abdomen/pelvis shows peritoneal carcinomatosis and severe intra- and extrahepatic ductal dilation. RUQ US showing similar findings Concerning for occult biliary malignancy. MRCP showing infiltrating mass of the liver hilum causing marked biliary dilation and peritoneal carcinomatosis. 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 Continue cholestyramine. Benadryl available as needed. (4) Transaminitis: Code(s): R74.01 - Elevation of levels of liver transaminase levels Status: Acute Assessment and Plan: Related to above and levels about the same (5) Essential hypertension: Code(s): I10 - Essential (primary) hypertension Status: Acute Assessment and Plan: Patient's blood pressure was reviewed on 05/29 Blood pressure stable. Continue Lisinopril (6) Benign prostatic hyperplasia: Code(s): N40.0 - Benign prostatic hyperplasia without lower urinary tract symptoms Status: Acute Assessment and Plan: Stable. Continue Proscar. Plan DVT Prophylaxis - Lovenox Subjective Date/time seen: 05/29/22 16:10 Interval history: 87yo male with CKD, BPH and HTN here for painless jaundice. Pruritus worse last night but better today. No issues overnight.No CP and SOB. Exam Narrative: AF 116/64 75 20 100% ra Gen - NARD Chest - CTA bilaterally, nml RR CV - RRR S1/S2 Abd - Soft, NT/ND, Positive BS Ext - No pedal edema Psych - Nml mood and affect. [place] Skin - Warm and dry, jaundiced Objective Data Vital Signs Vital Signs: Vital Signs - 24 hr 05/28/22 20:27 05/29/22 05:13 05/29/22 08:31 Temperature 98.2 F 97 F L Pulse Rate 80 69 Respiratory Rate 20 20 Blood Pressure 119/73 116/67 Pulse Oximetry 98 100 Oxygen Delivery Room Air 05/29/22 08:30 05/29/22 14:00 Temperature 97.4 F L Pulse Rate 75 Respiratory Rate 20 Blood Pressure 120/66 116/64 Pulse Oximetry 100 Oxygen Delivery Intake/Output Intake/Output: Intake & Output 05/26/22 05/27/22 05/28/22 05/29/22 23:59 23:59 23:59 23:59 Intake Total 500 2140 1570 240 Output Total 200 Balance 300 2140 1570 240 Meds/Results Medications: Active Medications Generic Name Dose Route Start Last Admin Trade Name Freq PRN Reason Stop Dose Admin Cholestyramine Resin 4 gm 05/27/22 18:00 05/29/22 10:00 Cholestyramine (W/ Sugar) 4 Gm Powd.Pack PO Not Given BID@1000,1800 LUCINDA Diphenhydramine HCl 25 mg 05/26/22 22:09 05/28/22 23:13 Diphenhydramine Hcl Cap 25 Mg Capsule PO 25 mg Q6H PRN Administration Itching Enoxaparin Sodium 40 mg 05/28/22 17:00 Enoxaparin 40 Mg/0.4 Ml Syringe SUB-Q DAILY@1700 LUCINDA Finasteride 5 mg 05/27/22 09:00 05/29/22 08:23 Finasteride 5 Mg Tablet PO 5 mg DAILY LUCINDA Administration Lisinopril 10 mg 05/28/22 11:45 05/29/22 08:23 Lisinopril 10 Mg Tablet PO 06/26/22 08:59 10 mg DAILY LUCINDA Administration Multivitamins/Minerals 2 tablet 05/27/22 09:00
[2022-05-29] MEDS: CHOLESTYRAMINE (W/ SUGAR) 4 GM POWD.PACK PO (17:01)
[2022-05-29] MEDS: ENOXAPARIN 40 MG/0.4 ML SYRINGE SUB-Q (17:01)
[2022-05-29 19:59] VITALS: BP 103/62; PULSE 99; RESP 18; TEMP 35.9; O2SAT 100
[2022-05-29] MEDS: diphenhydrAMINE HCl CAP 25 MG CAPSULE PO (21:41)
[2022-05-30 04:37] VITALS: BP 111/73; PULSE 79; RESP 20; TEMP 36.7; O2SAT 99
[2022-05-30 05:49] LABS: Basophils Absolute Auto 0.1 K/mm3 (0.0-0.1); Basophils Percent Auto 0.8 % (0.2-1.2); Eosinophils Absolute Auto 0.1 K/mm3 (0-0.3); Eosinophils Percent Auto 0.8 % (0-4.4); Hematocrit 30.6 % (42.0-52.0); Immature Granulocyte Absolute 0.12 K/mm3 (0.00-0.031); Immature Granulocyte Percent A 1.9 % (0-0.5); Immature Platelet Fraction Pct 4.5 % (0.9-11.2); Lymphocytes Absolute Auto 1.09 K/mm3 (0.9-3.2); Mean Corpuscular HGB Conc 32.7 g/dl (32-36); Mean Corpuscular Hemoglobin 30.2 pg (26-34); Mean Corpuscular Volume 92.4 fl (80-100); Monocytes Absolute Auto 0.9 K/mm3 (0.1-0.6); Monocytes Percent Auto 14.5 % (2.6-8.5); Neutrophils Absolute Auto 4.2 K/mm3 (1.3-6.7); Nucleated Red Blood Cells Perc 0.3 % (0.0-0.2); Platelet Count Result 317 k/mm3 (150-375); Red Blood Count 3.31 M/mm3 (4.6-6.20); Red Cell Distribution Width 21.8 % (11.5-14.5); White Blood Count 6.4 K/mm3 (4.5-10.0)
[2022-05-30 06:00] LABS: INR 1.2; Prothrombin Time 14.9 Seconds (11.1-14.7)
[2022-05-30 06:09] LABS: Alanine Aminotransferase 328 U/L (6-50); Albumin Level 3.3 g/dL (3.5-5.1); Alkaline Phosphatase 1127 U/L (38-126); Anion Gap 6 mmol/L (8-16); Aspartate Amino Transferase 252 U/L (17-59); Bilirubin,Total 18.2 mg/dL (0.2-1.3); Blood Urea Nitrogen 22 mg/dL (9-20); Calcium 8.4 mg/dL (8.4-10.2); Carbon Dioxide 21 mmol/L (22-30); Chloride 101 mmol/L (98-107); Estimated CRCL calculation 51 ml/min; Estimated Glomerular Filt Rate > 60; Glucose 87 mg/dL (65-110); Magnesium 1.9 mg/dL (1.6-2.3); Potassium 3.8 mmol/L (3.4-5.0); Sodium 128 mmol/L (137-145)
[2022-05-30 08:04] VITALS: BP 93/54
[2022-05-30] MEDS: FINASTERIDE 5 MG TABLET PO (08:06)
[2022-05-30] MEDS: OPTI-GEN TAB 2 TABLET PO (08:06)
--- NOTE | 2022-05-30 10:26 | WPDGIPROGNO ---
Progress Note: A&P Assessment and Plan (1) Dilated bile duct: Code(s): K83.8 - Other specified diseases of biliary tract Status: Acute Assessment and Plan: Patient with CT scan imaging showing dilatation of the proximal bile ducts. There is a mass in the liver impinging on the hilum of the biliary tree. This may be a primary cholangiocarcinoma versus metastatic disease. Patient has multiple additional lesions throughout the peritoneal area consistent with carcinomatosis. Given the high location of this obstruction referral to tertiary care center for endoscopic ultrasound and biopsy if necessary and placement of a biliary stent is advised. Biliary obstruction appears to account for Painless jaundice as well as appear right is. Also for darkening of the urine and lightening of his stools. (2) Peritoneal carcinomatosis: Code(s): C78.6 - Secondary malignant neoplasm of retroperitoneum and peritoneum Status: Acute (3) Jaundice: Code(s): R17 - Unspecified jaundice Status: Acute Subjective Date/time seen: 05/30/22 10:26 Interval history: Patient alert comfortable this morning. Tolerated diet last evening. Denies abdominal pain. Review of Systems Review of Systems: Review of systems noncontributory. Exam Narrative: Physical exam reveals patient had marked scleral icterus. Skin is somewhat yellow in color. HEENT exam as stated. Lungs are clear. Heart without murmur. Abdomen bowel sounds present soft and nontender. Objective Data Vital Signs Vital Signs: Vital Signs - 24 hr 05/29/22 14:00 05/29/22 19:59 05/30/22 04:37 Temperature 97.4 F L 96.7 F L 98.1 F Pulse Rate 75 99 79 Respiratory Rate 20 18 20 Blood Pressure 116/64 103/62 111/73 Pulse Oximetry 100 100 99 05/30/22 08:04 Temperature Pulse Rate Respiratory Rate Blood Pressure 93/54 L Pulse Oximetry Intake/Output Intake/Output: Intake & Output 05/27/22 05/28/22 05/29/22 05/30/22 23:59 23:59 23:59 23:59 Intake Total 2140 1570 480 720 Balance 2140 1570 480 720 Meds/Results Medications: Active Medications Generic Name Dose Route Start Last Admin Trade Name Freq PRN Reason Stop Dose Admin Cholestyramine Resin 4 gm 05/27/22 18:00 05/29/22 17:01 Cholestyramine (W/ Sugar) 4 Gm Powd.Pack PO 4 gm BID@1000,1800 LUCINDA Administration Diphenhydramine HCl 25 mg 05/26/22 22:09 05/29/22 21:41 Diphenhydramine Hcl Cap 25 Mg Capsule PO 25 mg Q6H PRN Administration Itching Enoxaparin Sodium 40 mg 05/28/22 17:00 05/29/22 17:01 Enoxaparin 40 Mg/0.4 Ml Syringe SUB-Q 40 mg DAILY@1700 LUCINDA Administration Finasteride 5 mg 05/27/22 09:00 05/30/22 08:06 Finasteride 5 Mg Tablet PO 5 mg DAILY LUCINDA Administration Lisinopril 10 mg 05/28/22 11:45 05/30/22 08:05 Lisinopril 10 Mg Tablet PO 06/26/22 08:59 Not Given DAILY LUCINDA Multivitamins/Minerals 2 tablet 05/27/22 09:00 05/30/22 08:06 Opti-Gen Tab PO 06/26/22 08:59 2 tablet DAILY LUCINDA Administration Radiology Results: ITS Impressions Abdomen/Pelvis CT 05/26/22 14:17 IMPRESSION: 1. Peritoneal carcinomatosis. 2. Severe intrahepatic biliary duct dilatation. Areas of intrahepatic biliary stenosis suggest occult malignancy. Extrahepatic bile duct dilatation. Consider MRCP without and with contrast. 3. Periportal lymphadenopathy. Upper Quadrant Ultrasound 05/26/22 14:31 Impression: Intrahepatic biliary dilatation. Obstructing biliary/hepatic/pancreatic mass is a consideration. CT scan has already been ordered for this patient. Gallbladder sludge and small stones. MRCP 05/29/22 10:57 IMPRESSION: 1. Infiltrating mass of the liver hilum causing marked intrahepatic biliary dilatation. Findings suspicious for cholangiocarcinoma. 2. Peritoneal carcinomatosis with multiple left upper quadrant masses. Labs Labs: Laboratory Results - last 24 hr
[2022-05-30] MEDS: CHOLESTYRAMINE (W/ SUGAR) 4 GM POWD.PACK PO ×2 (10:29→17:49)
--- NOTE | 2022-05-30 11:12 | PM.IMPN ---
Progress Note: A&P Assessment and Plan (1) Obstructive jaundice: Code(s): K83.1 - Obstruction of bile duct Status: Acute Assessment and Plan: The patient developed pruritis, jaundice and bacon colored stools. No weight loss. He was sent to the emergency department after discovering elevated liver enzymes. Liver tests were normal in February. TB 18.9, AST 316, ALT [address] abdomen/pelvis shows peritoneal carcinomatosis and severe intra- and extrahepatic ductal dilation. RUQ US showing similar findings Concerning for occult biliary malignancy. MRCP showing infiltrating mass of the liver hilum causing marked biliary dilation and peritoneal carcinomatosis. Repeat LFTs about the same. 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 Continue cholestyramine. Benadryl available as needed. (4) Transaminitis: Code(s): R74.01 - Elevation of levels of liver transaminase levels Status: Acute Assessment and Plan: Related to above and levels about the same (5) Essential hypertension: Code(s): I10 - Essential (primary) hypertension Status: Acute Assessment and Plan: Patient's blood pressure was reviewed on 05/30 Blood pressure too low. Will stop Lisinopril. (6) Benign prostatic hyperplasia: Code(s): N40.0 - Benign prostatic hyperplasia without lower urinary tract symptoms Status: Acute Assessment and Plan: Stable. Continue Proscar. Plan DVT Prophylaxis - Lovenox Subjective Date/time seen: 05/30/22 11:12 Interval history: 87yo male with CKD, BPH and HTN here for painless jaundice. Pruritus worse again last night but better today and better overall. No issues overnight. No CP and SOB. BP soft today. he has been up sitting in the chair and walking in the halls. Eating okay Exam Narrative: AF 93/54 79 20 99% ra Gen - NARD Chest - CTA bilaterally, nml RR CV - RRR S1/S2 Abd - Soft, NT/ND, Positive BS Ext - No pedal edema Psych - Nml mood and affect. [place] Skin - Warm and dry, jaundiced Objective Data Vital Signs Vital Signs: Vital Signs - 24 hr 05/29/22 14:00 05/29/22 19:59 05/30/22 04:37 Temperature 97.4 F L 96.7 F L 98.1 F Pulse Rate 75 99 79 Respiratory Rate 20 18 20 Blood Pressure 116/64 103/62 111/73 Pulse Oximetry 100 100 99 05/30/22 08:04 Temperature Pulse Rate Respiratory Rate Blood Pressure 93/54 L Pulse Oximetry Intake/Output Intake/Output: Intake & Output 05/27/22 05/28/22 05/29/22 05/30/22 23:59 23:59 23:59 23:59 Intake Total 2140 1570 480 720 Balance 2140 1570 480 720 Meds/Results Medications: Active Medications Generic Name Dose Route Start Last Admin Trade Name Freq PRN Reason Stop Dose Admin Cholestyramine Resin 4 gm 05/27/22 18:00 05/30/22 10:29 Cholestyramine (W/ Sugar) 4 Gm Powd.Pack PO 4 gm BID@1000,1800 LUCINDA Administration Diphenhydramine HCl 25 mg 05/26/22 22:09 05/29/22 21:41 Diphenhydramine Hcl Cap 25 Mg Capsule PO 25 mg Q6H PRN Administration Itching Enoxaparin Sodium 40 mg 05/28/22 17:00 05/29/22 17:01 Enoxaparin 40 Mg/0.4 Ml Syringe SUB-Q 40 mg DAILY@1700 LUCINDA Administration Finasteride 5 mg 05/27/22 09:00 05/30/22 08:06 Finasteride 5 Mg Tablet PO 5 mg DAILY LUCINDA Administration Lisinopril 10 mg 05/28/22 11:45 05/30/22 08:05 Lisinopril 10 Mg Tablet PO 030
[2022-05-30 14:22] LABS: CA 19-9 917 U/mL (<34)
[2022-05-30 14:46] VITALS: BP 126/64; PULSE 85; RESP 16; TEMP 36.5; O2SAT 100
[2022-05-30] MEDS: ENOXAPARIN 40 MG/0.4 ML SYRINGE SUB-Q (16:37)
[2022-05-30] MEDS: diphenhydrAMINE HCl CAP 25 MG CAPSULE PO ×2 (16:37→22:09)
[2022-05-30 19:35] LABS: Osmolality, Urine 476 mOsm/kg (50-1200)
[2022-05-30 19:54] VITALS: BP 118/74; PULSE 77; RESP 20; TEMP 36.3; O2SAT 100
[2022-05-30 20:00] VITALS: PULSE 77; RESP 20; O2SAT 100
[2022-05-31] MEDS: diphenhydrAMINE HCl CAP 25 MG CAPSULE PO ×3 (03:27→20:00)
[2022-05-31 04:44] VITALS: BP 112/72; PULSE 75; RESP 22; TEMP 36.9; O2SAT 100
--- NOTE | 2022-05-31 08:02 | WPDGIPROGNO ---
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 This is causing more proximal biliary obstruction. Also with diffuse carcinomatosis on CT scan imaging. Elevated CA 19-9 is noted. Possibly related to cholangiocarcinoma versus metastatic disease. Patient needs transfer to tertiary care center so endoscopic ultrasound and biopsy can be performed as well as possible biliary stenting. I understand transfer is being arranged [facility] when bed is available. This appears to be in progress. Continue supportive care for now. (3) Obstructive jaundice: Code(s): K83.1 - Obstruction of bile duct Status: Acute Subjective Date/time seen: 05/31/22 08:02 Interval history: Patient is alert comfortable this morning. Tolerating diet. Denies abdominal pain at present. Review of Systems Review of Systems: Review of systems is noncontributory. Exam Narrative: Physical exam reveals patient had marked scleral icterus. Lungs are clear to auscultation and percussion. Heart is without murmur or extra sounds. Abdomen bowel sounds present soft nontender with no obvious organomegaly. Objective Data Vital Signs Vital Signs: Vital Signs - 24 hr 05/30/22 08:04 05/30/22 14:46 05/30/22 19:54 Temperature 97.7 F 97.4 F L Pulse Rate 85 77 Respiratory Rate 16 20 Blood Pressure 93/54 L 126/64 118/74 Pulse Oximetry 100 100 Oxygen Delivery 05/30/22 20:00 05/31/22 04:44 Temperature 98.5 F Pulse Rate 77 75 Respiratory Rate 20 22 H Blood Pressure 112/72 Pulse Oximetry 100 100 Oxygen Delivery Room Air Intake/Output Intake/Output: Intake & Output 05/28/22 05/29/22 05/30/22 05/31/22 23:59 23:59 23:59 23:59 Intake Total 4256 820 5483 390 Output Total 400 400 Balance 4557 071 7687 -10 Meds/Results Medications: Active Medications Generic Name Dose Route Start Last Admin Trade Name Freq PRN Reason Stop Dose Admin Cholestyramine Resin 4 gm 05/27/22 18:00 02/07/23 17:49 Cholestyramine (W/ Sugar) 4 Gm Powd.Pack PO 4 gm BID@1000,1800 LUCINDA Administration Diphenhydramine HCl 25 mg 05/26/22 22:09 05/31/22 03:27 Diphenhydramine Hcl Cap 25 Mg Capsule PO 25 mg Q6H PRN Administration Itching Enoxaparin Sodium 40 mg 05/28/22 17:00 05/30/22 16:37 Enoxaparin 40 Mg/0.4 Ml Syringe SUB-Q 40 mg DAILY@1700 LUCINDA Administration Finasteride 5 mg 05/27/22 09:00 05/30/22 08:06 Finasteride 5 Mg Tablet PO 5 mg DAILY LUCINDA Administration Multivitamins/Minerals 2 tablet 05/27/22 09:00 05/30/22 08:06 Opti-Gen Tab PO 06/26/22 08:59 2 tablet DAILY LUCINDA Administration Radiology Results: ITS Impressions Abdomen/Pelvis CT 05/26/22 14:17 IMPRESSION: 1. Peritoneal carcinomatosis. 2. Severe intrahepatic biliary duct dilatation. Areas of intrahepatic biliary stenosis suggest occult malignancy. Extrahepatic bile duct dilatation. Consider MRCP without and with contrast. 3. Periportal lymphadenopathy. Upper Quadrant Ultrasound 05/26/22 14:31 Impression: Intrahepatic biliary dilatation. Obstructing biliary/hepatic/pancreatic mass is a consideration. CT scan has already been ordered for this patient. Gallbladder sludge and small stones. MRCP 05/29/22 10:57 IMPRESSION: 1. Infiltrating mass of the liver hilum causing marked intrahepatic biliary dilatation. Findings suspicious for cholangiocarcinoma. 2. Peritoneal carcinomatosis with multiple left upper quadrant masses. Labs Labs: Laboratory Results - last 24 hr 05/26/22 05/27/22 05/27/22 22:45 05:45 05:45 Serum Osmolality 280 CA 19-9 Antigen
[2022-05-31] MEDS: OPTI-GEN TAB 2 TABLET PO (08:07)
[2022-05-31] MEDS: FINASTERIDE 5 MG TABLET PO (08:07)
--- NOTE | 2022-05-31 08:33 | PM.IMPN ---
Progress Note: A&P Assessment and Plan (1) Obstructive jaundice: Code(s): K83.1 - Obstruction of bile duct Status: Acute Assessment and Plan: The patient developed pruritis, jaundice and bacon colored stools. No weight loss. He was sent to the emergency department after discovering elevated liver enzymes. Liver tests were normal in February. TB 18.9, AST 316, ALT [address] abdomen/pelvis shows peritoneal carcinomatosis and severe intra- and extrahepatic ductal dilation. RUQ US showing similar findings Concerning for occult biliary malignancy. MRCP showing infiltrating mass of the liver hilum causing marked biliary dilation and peritoneal carcinomatosis. Repeat LFTs about the same. 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 Continue cholestyramine. Benadryl available as needed. (4) Transaminitis: Code(s): R74.01 - Elevation of levels of liver transaminase levels Status: Acute Assessment and Plan: Related to above and levels about the same (5) Essential hypertension: Code(s): I10 - Essential (primary) hypertension Status: Acute Assessment and Plan: Hypotensive, lisinopril being held (6) Benign prostatic hyperplasia: Code(s): N40.0 - Benign prostatic hyperplasia without lower urinary tract symptoms Status: Acute Assessment and Plan: Stable. Continue Proscar. (7) UTI (urinary tract infection) due to Enterococcus: Code(s): N39.0 - Urinary tract infection, site not specified; B95.2 - Enterococcus as the cause of diseases classified elsewhere Status: Acute Assessment and Plan: urology team called and stated urine culture came back with enterococcus, sens to cipro, patient will be started on this for a 14 day course, end date 06/13 Plan DVT prophylaxis with lovenox GI prophylaxis not indicated Code status full code Subjective Date/time seen: 05/31/22 08:33 Interval history: 87yo male with CKD, BPH and HTN here for painless jaundice. No overnight events noted. No chest pain or shortness of breath. No nausea, vomiting or diarrhea. No fevers or chills. No complaints, feels great. Review of Systems Review of Systems: 12 point review of systems was assessed and was negative except as noted in the HPI Exam Narrative: General: No acute distress, alert and oriented per baseline, jaundiced HEENT: Atraumatic, normocephalic, mucous membranes moist, icteric sclera CV: Regular rate and rhythm, S1, S2 Lungs: Clear to auscultation bilaterally, no rales or crackles noted, no wheezes, good air entry Abdomen: Soft, nontender, nondistended Extremities: Normal to inspection Skin: No rashes noted, no lesions or wounds seen Psych: Euthymic, normal affect Objective Data Vital Signs Vital Signs: Vital Signs - 24 hr 05/30/22 14:46 05/30/22 19:54 05/30/22 20:00 Temperature 97.7 F 97.4 F L Pulse Rate 85 77 77 Respiratory Rate 16 20 20 Blood Pressure 126/64 118/74 Pulse Oximetry 100 100 100 Oxygen Delivery Room Air 05/31/22 04:44 Temperature 98.5 F Pulse Rate 75 Respiratory Rate 22 H Blood Pressure 112/72 Pulse Oximetry 100 Oxygen Delivery Intake/Output Intake/Output: Intake & Output 05/28/22 05/29/22 05/30/22 05/31/22 23:59 23:59 23:59 23:59 Intake Total 8381 301 3556 390 Output Total 400 400 Balance 6154 256 7338 -10 Pr
[2022-05-31] MEDS: CHOLESTYRAMINE (W/ SUGAR) 4 GM POWD.PACK PO ×2 (09:35→18:19)
[2022-05-31] MEDS: CIPROFLOXACIN 400 MG/D5W 200ML 200 ML 200 MG IVPB ×2 (09:36→20:01)
[2022-05-31 09:47] VITALS: O2SAT 98
[2022-05-31 14:00] VITALS: BP 108/82; PULSE 85; RESP 16; TEMP 36.3; O2SAT 98
[2022-05-31] MEDS: ENOXAPARIN 40 MG/0.4 ML SYRINGE SUB-Q (17:19)
[2022-05-31 21:38] VITALS: BP 125/71; PULSE 80; RESP 17; TEMP 36.8; O2SAT 100
[2022-06-01] MEDS: diphenhydrAMINE HCl CAP 25 MG CAPSULE PO (04:16)
[2022-06-01 05:49] VITALS: BP 134/63; PULSE 81; RESP 17; TEMP 36.7; O2SAT 100
[2022-06-01] MEDS: FINASTERIDE 5 MG TABLET PO (08:05)
[2022-06-01] MEDS: OPTI-GEN TAB 2 TABLET PO (08:05)
[2022-06-01] MEDS: CIPROFLOXACIN 400 MG/D5W 200ML 200 ML 200 MG IVPB ×2 (08:06→20:03)
--- NOTE | 2022-06-01 08:18 | PM.IMPN ---
Progress Note: A&P Assessment and Plan (1) Obstructive jaundice: Code(s): K83.1 - Obstruction of bile duct Status: Acute Assessment and Plan: The patient developed pruritis, jaundice and bacon colored stools. No weight loss. He was sent to the emergency department after discovering elevated liver enzymes. Liver tests were normal in February. 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 Continue cholestyramine. Hydroxyzine available as needed. (4) Transaminitis: Code(s): R74.01 - Elevation of levels of liver transaminase levels Status: Acute Assessment and Plan: Related to above and levels about the same (5) Essential hypertension: Code(s): I10 - Essential (primary) hypertension Status: Acute Assessment and Plan: restart home lisinopril + HCTZ (6) Benign prostatic hyperplasia: Code(s): N40.0 - Benign prostatic hyperplasia without lower urinary tract symptoms Status: Acute Assessment and Plan: Stable. Continue Proscar. (7) UTI (urinary tract infection) due to Enterococcus: Code(s): N39.0 - Urinary tract infection, site not specified; B95.2 - Enterococcus as the cause of diseases classified elsewhere Status: Acute Assessment and Plan: urology team called and stated urine culture came back with enterococcus, sens to cipro, patient will be started on this for a 14 day course, end date 06/13 Plan DVT prophylaxis with lovenox GI prophylaxis not indicated Code status full code Subjective Date/time seen: 06/01/22 08:18 Interval history: 87yo male with CKD, BPH and HTN here for painless jaundice. No overnight events noted. No chest pain or shortness of breath. No nausea, vomiting or diarrhea. No fevers or chills. He is c/o itching all over, worsened from yesterday. Review of Systems Review of Systems: 12 point review of systems was assessed and was negative except as noted in the HPI Exam Narrative: General: No acute distress, alert and oriented per baseline, jaundiced HEENT: Atraumatic, normocephalic, mucous membranes moist, icteric sclera CV: Regular rate and rhythm, S1, S2 Lungs: Clear to auscultation bilaterally, no rales or crackles noted, no wheezes, good air entry Abdomen: Soft, nontender, nondistended Extremities: Normal to inspection Skin: No rashes noted, no lesions or wounds seen Psych: Euthymic, normal affect Objective Data Vital Signs Vital Signs: Vital Signs - 24 hr 05/31/22 09:47 05/31/22 14:00 05/31/22 21:38 Temperature 97.4 F L 98.2 F Pulse Rate 85 80 Respiratory Rate 16 17 Blood Pressure 108/82 125/71 Pulse Oximetry 98 98 100 Oxygen Delivery Room Air 06/01/22 05:49 Temperature 98.0 F Pulse Rate 81 Respiratory Rate 17 Blood Pressure 134/63 Pulse Oximetry 100 Oxygen Delivery Intake/Output Intake/Output: Intake & Output 05/29/22 05/30/22 05/31/22 06/01/22 23:59 23:59 23:59 23:59 Intake Total 480 2150 2360 250 Output Total 400 400 Balance 480 1750 1960 250 Meds/Results Medications: Active Medications Generic Name Dose Route Start Last Admin Trade Name Freq PRN Reason Stop Dose Admin Cholestyramine Resin 4 gm 05/27/22 18:00 05/31/22 18:19 Cholestyramine (W/ Sugar) 4 Gm Powd.Pack PO 4 gm BID@1000,1800 LUCINDA Administration Diphenhydramine HCl 25 mg 05/26/22 22:09 06/01/22 04:16 Diphenhydramine Hcl Cap 25 Mg Caps
[2022-06-01] MEDS: CHOLESTYRAMINE (W/ SUGAR) 4 GM POWD.PACK PO ×2 (10:41→18:22)
--- NOTE | 2022-06-01 12:48 | ECG_ITS ---
Measurements Intervals Sears Rate: 80 P: 52 NM: 195 QRS: -29 QRSD: 97 T: 18 QT: 396 QTc: 459 Interpretive Statements SINUS RHYTHM WITH OCCASIONAL SUPRAVENTRICULAR PREMATURE COMPLEXES BORDERLINE LEFT AXIS DEVIATION [QRS AXIS < -20] LOW QRS VOLTAGE IN PRECORDIAL LEADS [QRS DEFLECTION < 1.0 mV IN CHEST LEADS] NO PREVIOUS ECG AVAILABLE FOR COMPARISON Electronically Signed On 06-01-2022 15:49:20 [employer] by Zina Olsen M.D.
[2022-06-01 14:46] VITALS: BP 134/76; PULSE 86; RESP 18; TEMP 36.4; O2SAT 100
[2022-06-01] MEDS: HYDROCORTISONE 1% 30 GM CREAM 1 APPLIC TOPICAL ×2 (15:00→22:03)
[2022-06-01] MEDS: ENOXAPARIN 40 MG/0.4 ML SYRINGE SUB-Q (17:07)
[2022-06-01 21:07] VITALS: BP 123/69; PULSE 77; RESP 17; TEMP 36.8; O2SAT 100
[2022-06-01] MEDS: hydrOXYzine HCL 25 MG TABLET PO (22:03)
[2022-06-02] MEDS: hydrOXYzine HCL 25 MG TABLET PO ×5 (02:04→19:47)
[2022-06-02 05:35] VITALS: BP 115/76; PULSE 73; RESP 18; TEMP 36.4; O2SAT 100
[2022-06-02] MEDS: HYDROCORTISONE 1% 30 GM CREAM 1 APPLIC TOPICAL ×2 (05:56→13:19)
[2022-06-02] MEDS: CIPROFLOXACIN 400 MG/D5W 200ML 200 ML 200 MG IVPB (09:04)
[2022-06-02] MEDS: OPTI-GEN TAB 2 TABLET PO (09:05)
[2022-06-02 09:06] VITALS: RESP 18; O2SAT 100
[2022-06-02] MEDS: lisinopriL 20 MG TABLET PO (09:06)
[2022-06-02] MEDS: FINASTERIDE 5 MG TABLET PO (09:06)
[2022-06-02] MEDS: hydroCHLOROthiazide 12.5 MG CAPSULE PO (09:06)
--- NOTE | 2022-06-02 09:40 | PM.IMPN ---
Progress Note: A&P Assessment and Plan (1) Obstructive jaundice: Code(s): K83.1 - Obstruction of bile duct Status: Acute Assessment and Plan: The patient developed pruritis, jaundice and bacon colored stools. No weight loss. He was sent to the emergency department after discovering elevated liver enzymes. Liver tests were normal in February. 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 Continue cholestyramine. Hydroxyzine available as needed. (4) Transaminitis: Code(s): R74.01 - Elevation of levels of liver transaminase levels Status: Acute Assessment and Plan: Related to above and levels about the same (5) Essential hypertension: Code(s): I10 - Essential (primary) hypertension Status: Acute Assessment and Plan: restart home lisinopril + HCTZ (6) Benign prostatic hyperplasia: Code(s): N40.0 - Benign prostatic hyperplasia without lower urinary tract symptoms Status: Acute Assessment and Plan: Stable. Continue Proscar. (7) UTI (urinary tract infection) due to Enterococcus: Code(s): N39.0 - Urinary tract infection, site not specified; B95.2 - Enterococcus as the cause of diseases classified elsewhere Status: Acute Assessment and Plan: urology team called and stated urine culture came back with enterococcus, sens to cipro, patient will be started on this for a 14 day course, end date 06/13 Plan DVT prophylaxis with lovenox GI prophylaxis not indicated Code status full code Subjective Date/time seen: 06/02/22 09:40 Interval history: 87yo male with CKD, BPH and HTN here for painless jaundice. No overnight events noted. No chest pain or shortness of breath. No nausea, vomiting or diarrhea. No fevers or chills. Itching improved from yesterday on hydroxyzine. Review of Systems Review of Systems: 12 point review of systems was assessed and was negative except as noted in the HPI Exam Narrative: General: No acute distress, alert and oriented per baseline, jaundiced HEENT: Atraumatic, normocephalic, mucous membranes moist, icteric sclera CV: Regular rate and rhythm, S1, S2 Lungs: Clear to auscultation bilaterally, no rales or crackles noted, no wheezes, good air entry Abdomen: Soft, nontender, nondistended Extremities: Normal to inspection Skin: No rashes noted, no lesions or wounds seen Psych: Euthymic, normal affect Objective Data Vital Signs Vital Signs: Vital Signs - 24 hr 06/01/22 14:46 06/01/22 21:07 06/02/22 05:35 Temperature 97.5 F L 98.2 F 97.6 F Pulse Rate 86 77 73 Respiratory Rate 18 17 18 Blood Pressure 134/76 123/69 115/76 Pulse Oximetry 100 100 100 Intake/Output Intake/Output: Intake & Output 05/30/22 05/31/22 06/01/22 06/02/22 23:59 23:59 23:59 23:59 Intake Total 2150 2360 2260 250 Output Total 400 400 Balance 1750 1960 2260 250 Meds/Results Medications: Active Medications Generic Name Dose Route Start Last Admin Trade Name Freq PRN Reason Stop Dose Admin Cholestyramine Resin 4 gm 05/27/22 18:00 06/01/22 18:22 Cholestyramine (W/ Sugar) 4 Gm Powd.Pack PO 4 gm BID@1000,1800 [facility] Administration Enoxaparin Sodium 40 mg 05/28/22 17:00 06/01/22 17:07 Enoxaparin 40 Mg/0.4 Ml Syringe SUB-Q 40 mg DAILY@1700 [facility] Administration Finasteride 5 mg 05/27/22 09:00 06/02/22 09:06 Finasteride 5 Mg Tablet PO 5 mg DAILY [facility]
[2022-06-02] MEDS: CHOLESTYRAMINE (W/ SUGAR) 4 GM POWD.PACK PO ×2 (09:56→17:10)
--- NOTE | 2022-06-02 11:49 | PCNWS ---
Weekly nutritional screen. Patient is tolerating current diet with adequate intake. No weight loss reported. No nutritional needs at this time.
[2022-06-02 13:22] VITALS: BP 105/60; PULSE 77; RESP 18; TEMP 36.6; O2SAT 99
[2022-06-02] MEDS: ENOXAPARIN 40 MG/0.4 ML SYRINGE SUB-Q (17:09)
[2022-06-02 17:25] LABS: Basophils Absolute Auto 0.1 K/mm3 (0.0-0.1); Basophils Percent Auto 0.9 % (0.2-1.2); Eosinophils Absolute Auto 0.1 K/mm3 (0-0.3); Eosinophils Percent Auto 0.8 % (0-4.4); Hematocrit 29.4 % (42.0-52.0); Hemoglobin 9.7 g/dL (14.0-18.0); Immature Granulocyte Absolute 0.21 K/mm3 (0.00-0.031); Immature Granulocyte Percent A 2.8 % (0-0.5); Lymphocytes Absolute Auto 1.03 K/mm3 (0.9-3.2); Lymphocytes Percent Auto 13.7 % (18.3-44.2); Mean Corpuscular Hemoglobin 31.1 pg (26-34); Mean Corpuscular Volume 94.2 fl (80-100); Mean Platelet Volume 9.8 fl (7.4-10.4); Monocytes Absolute Auto 0.9 K/mm3 (0.1-0.6); Monocytes Percent Auto 12.3 % (2.6-8.5); Neutrophils Absolute Auto 5.2 K/mm3 (1.3-6.7); Neutrophils Percent Auto 69.5 % (45.5-73.1); Platelet Count Result 361 k/mm3 (150-375); Red Blood Count 3.12 M/mm3 (4.6-6.20); Red Cell Distribution Width 21.5 % (11.5-14.5); White Blood Count 7.5 K/mm3 (4.5-10.0)
[2022-06-02 17:43] LABS: Alanine Aminotransferase 285 U/L (6-50); Albumin Level 3.2 g/dL (3.5-5.1); Alkaline Phosphatase 1124 U/L (38-126); Anion Gap 8 mmol/L (8-16); Aspartate Amino Transferase 226 U/L (17-59); Bilirubin,Total 18.9 mg/dL (0.2-1.3); Blood Urea Nitrogen 19 mg/dL (9-20); Calcium 8.1 mg/dL (8.4-10.2); Carbon Dioxide 21 mmol/L (22-30); Chloride 102 mmol/L (98-107); Estimated CRCL calculation 40 ml/min; Estimated Glomerular Filt Rate 48; Glucose 124 mg/dL (65-110); Potassium 3.7 mmol/L (3.4-5.0); Sodium 131 mmol/L (137-145)
[2022-06-02] MEDS: CIPROFLOXACIN 500 MG TAB PO (19:47)
[2022-06-02 20:00] VITALS: PULSE 77; RESP 18; O2SAT 99
[2022-06-02 21:29] VITALS: O2SAT 99
[2022-06-02 21:54] VITALS: BP 117/69; PULSE 80; RESP 21; TEMP 36.4; O2SAT 100
[2022-06-03] MEDS: hydrOXYzine HCL 25 MG TABLET PO ×3 (00:16→10:00)
[2022-06-03 05:56] LABS: Basophils Absolute Auto 0.1 K/mm3 (0.0-0.1); Basophils Percent Auto 0.7 % (0.2-1.2); Eosinophils Absolute Auto 0.1 K/mm3 (0-0.3); Eosinophils Percent Auto 0.8 % (0-4.4); Hematocrit 30.7 % (42.0-52.0); Immature Granulocyte Absolute 0.22 K/mm3 (0.00-0.031); Immature Granulocyte Percent A 2.9 % (0-0.5); Immature Platelet Fraction Pct 3.7 % (0.9-11.2); Lymphocytes Absolute Auto 1.36 K/mm3 (0.9-3.2); Lymphocytes Percent Auto 18.1 % (18.3-44.2); Mean Corpuscular HGB Conc 32.6 g/dl (32-36); Mean Corpuscular Hemoglobin 30.7 pg (26-34); Mean Corpuscular Volume 94.2 fl (80-100); Mean Platelet Volume 9.7 fl (7.4-10.4); Monocytes Percent Auto 13.6 % (2.6-8.5); Neutrophils Absolute Auto 4.8 K/mm3 (1.3-6.7); Neutrophils Percent Auto 63.9 % (45.5-73.1); Platelet Count Result 386 k/mm3 (150-375); Red Blood Count 3.26 M/mm3 (4.6-6.20); Red Cell Distribution Width 21.6 % (11.5-14.5); White Blood Count 7.5 K/mm3 (4.5-10.0)
[2022-06-03 06:00] VITALS: BP 130/80; PULSE 69; RESP 21; TEMP 36.3; O2SAT 100
[2022-06-03 06:17] LABS: Alanine Aminotransferase 281 U/L (6-50); Albumin Level 3.2 g/dL (3.5-5.1); Alkaline Phosphatase 1164 U/L (38-126); Anion Gap 7 mmol/L (8-16); Aspartate Amino Transferase 219 U/L (17-59); Bilirubin,Total 18.8 mg/dL (0.2-1.3); Blood Urea Nitrogen 26 mg/dL (9-20); Calcium 8.3 mg/dL (8.4-10.2); Carbon Dioxide 22 mmol/L (22-30); Chloride 101 mmol/L (98-107); Estimated CRCL calculation 24 ml/min; Estimated Glomerular Filt Rate 26; Glucose 90 mg/dL (65-110); Potassium 4.1 mmol/L (3.4-5.0); Sodium 130 mmol/L (137-145)
[2022-06-03 08:12] VITALS: O2SAT 100
--- NOTE | 2022-06-03 08:26 | PM.IMPN ---
Progress Note: A&P Assessment and Plan (1) Obstructive jaundice: Code(s): K83.1 - Obstruction of bile duct Status: Acute Assessment and Plan: The patient developed pruritis, jaundice and bacon colored stools. No weight loss. He was sent to the emergency department after discovering elevated liver enzymes. Liver tests were normal in February. 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 Transfer was initiated to a tertiary care facility for hepatobiliary consult and awaiting bed availability. 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 Continue cholestyramine. Hydroxyzine available as needed. (4) Transaminitis: Code(s): R74.01 - Elevation of levels of liver transaminase levels Status: Acute Assessment and Plan: Essentially unchanged, trending down a bit Bilirubin still 18 (5) Essential hypertension: Code(s): I10 - Essential (primary) hypertension Status: Acute Assessment and Plan: restart home lisinopril + HCTZ (6) Benign prostatic hyperplasia: Code(s): N40.0 - Benign prostatic hyperplasia without lower urinary tract symptoms Status: Acute Assessment and Plan: Stable. Continue Proscar. (7) UTI (urinary tract infection) due to Enterococcus: Code(s): N39.0 - Urinary tract infection, site not specified; B95.2 - Enterococcus as the cause of diseases classified elsewhere Status: Acute Assessment and Plan: urology team called and stated urine culture came back with enterococcus, sens to cipro, patient will be started on this for a 14 day course, end date 06/13 Plan DVT prophylaxis with lovenox GI prophylaxis not indicated Code status full code Subjective Date/time seen: 06/03/22 08:26 Interval history: 87yo male with CKD, BPH and HTN here for painless jaundice. No overnight events noted. No chest pain or shortness of breath. No nausea, vomiting or diarrhea. No fevers or chills. Itching worsened again today. Review of Systems Review of Systems: 12 point review of systems was assessed and was negative except as noted in the HPI Exam Narrative: General: No acute distress, alert and oriented per baseline, jaundice worsened today HEENT: Atraumatic, normocephalic, mucous membranes moist, icteric sclera CV: Regular rate and rhythm, S1, S2 Lungs: Clear to auscultation bilaterally, no rales or crackles noted, no wheezes, good air entry Abdomen: Soft, nontender, nondistended Extremities: Normal to inspection Skin: No rashes noted, no lesions or wounds seen Psych: Euthymic, normal affect Objective Data Vital Signs Vital Signs: Vital Signs - 24 hr 06/02/22 09:06 06/02/22 13:22 06/02/22 20:00 Temperature 97.9 F Pulse Rate 77 77 Respiratory Rate 18 18 18 Blood Pressure 105/60 Pulse Oximetry 100 99 99 Oxygen Delivery Room Air Room Air 06/02/22 21:54 06/02/22 21:29 06/03/22 06:00 Temperature 97.5 F L 97.3 F L Pulse Rate 80 69 Respiratory Rate 21 H 21 H Blood Pressure 117/69 130/80 Pulse Oximetry 100 99 100 Oxygen Delivery Room Air 06/03/22 08:12 Temperature Pulse Rate Respiratory Rate Blood Pressure Pulse Oximetry 100 Oxygen Delivery Room Air Intake/Output Intake/Output: Intake & Output 05/31/22 06/01/22 06/02/22 06/03/22 23:59 23:59 23:59 23:59 Intake Total 2360 2260 1480 500 Output Total 400 Balance 1960 2260 1480 500 Meds/Results Medications: Active Medications Generic Name Dose Route Start Last Admin Trade Name Freq PRN Reason Stop Dose Admin Cholestyramine Resin 4 gm
[2022-06-03] MEDS: FINASTERIDE 5 MG TABLET PO (08:48)
[2022-06-03] MEDS: hydroCHLOROthiazide 12.5 MG CAPSULE PO (08:48)
[2022-06-03] MEDS: CIPROFLOXACIN 500 MG TAB PO ×2 (08:48→20:39)
[2022-06-03] MEDS: lisinopriL 20 MG TABLET PO (08:49)
[2022-06-03] MEDS: OPTI-GEN TAB 2 TABLET PO (08:49)
[2022-06-03] MEDS: CHOLESTYRAMINE (W/ SUGAR) 4 GM POWD.PACK PO ×2 (09:56→18:03)
[2022-06-03 14:00] VITALS: PULSE 76; RESP 18; TEMP 36.6; O2SAT 100
[2022-06-03] MEDS: ENOXAPARIN 40 MG/0.4 ML SYRINGE SUB-Q (16:42)
[2022-06-03] MEDS: SODIUM CHLORIDE 0.9% IV 1,000 ML 999 ML IV CONT (16:42)
[2022-06-03 20:00] VITALS: O2SAT 100
[2022-06-03] MEDS: hydrOXYzine HCL 25 MG TABLET 50 MG PO (20:40)
[2022-06-03] MEDS: HYDROCORTISONE 1% 30 GM CREAM 1 APPLIC TOPICAL (20:41)
[2022-06-03 21:35] VITALS: BP 109/63; PULSE 83; RESP 21; TEMP 36.9; O2SAT 100
--- NOTE | 2022-06-04 03:12 | PC.NURSE ---
SPOKE W/ [facility] AND [facility] TRANSFER TEAM TO GIVE UPDATES RE: PT CONDITION. CURRENTLY NO BEDS AVAILABLE AT EITHER FACILITY
[2022-06-04] MEDS: HYDROCORTISONE 1% 30 GM CREAM 1 APPLIC TOPICAL ×2 (05:24→22:20)
[2022-06-04 05:39] LABS: Basophils Absolute Auto 0.1 K/mm3 (0.0-0.1); Basophils Percent Auto 0.9 % (0.2-1.2); Eosinophils Absolute Auto 0.1 K/mm3 (0-0.3); Eosinophils Percent Auto 0.6 % (0-4.4); Hematocrit 32.2 % (42.0-52.0); Hemoglobin 10.6 g/dL (14.0-18.0); Immature Granulocyte Absolute 0.25 K/mm3 (0.00-0.031); Lymphocytes Absolute Auto 1.66 K/mm3 (0.9-3.2); Lymphocytes Percent Auto 19.7 % (18.3-44.2); Mean Corpuscular HGB Conc 32.9 g/dl (32-36); Mean Corpuscular Hemoglobin 30.7 pg (26-34); Mean Corpuscular Volume 93.3 fl (80-100); Mean Platelet Volume 10.3 fl (7.4-10.4); Monocytes Absolute Auto 1.1 K/mm3 (0.1-0.6); Monocytes Percent Auto 12.9 % (2.6-8.5); Neutrophils Absolute Auto 5.3 K/mm3 (1.3-6.7); Neutrophils Percent Auto 62.9 % (45.5-73.1); Platelet Count Result 400 k/mm3 (150-375); Red Blood Count 3.45 M/mm3 (4.6-6.20); White Blood Count 8.4 K/mm3 (4.5-10.0)
[2022-06-04] MEDS: hydrOXYzine HCL 25 MG TABLET 50 MG PO (05:42)
[2022-06-04 05:54] LABS: Alanine Aminotransferase 285 U/L (6-50); Albumin Level 3.5 g/dL (3.5-5.1); Alkaline Phosphatase 1285 U/L (38-126); Anion Gap 9 mmol/L (8-16); Aspartate Amino Transferase 231 U/L (17-59); Bilirubin,Total 22.1 mg/dL (0.2-1.3); Blood Urea Nitrogen 34 mg/dL (9-20); Calcium 8.5 mg/dL (8.4-10.2); Carbon Dioxide 17 mmol/L (22-30); Chloride 106 mmol/L (98-107); Estimated CRCL calculation 22 ml/min; Estimated Glomerular Filt Rate 23; Glucose 90 mg/dL (65-110); Potassium 4.1 mmol/L (3.4-5.0); Sodium 132 mmol/L (137-145)
[2022-06-04 06:00] VITALS: BP 100/67; PULSE 75; RESP 21; TEMP 36.7; O2SAT 100
[2022-06-04 08:22] VITALS: RESP 20; O2SAT 100
[2022-06-04] MEDS: OPTI-GEN TAB 2 TABLET PO (08:27)
[2022-06-04] MEDS: lisinopriL 20 MG TABLET PO (08:27)
[2022-06-04] MEDS: hydroCHLOROthiazide 12.5 MG CAPSULE PO (08:28)
[2022-06-04] MEDS: FINASTERIDE 5 MG TABLET PO (08:28)
[2022-06-04] MEDS: CIPROFLOXACIN 500 MG TAB PO (08:28)
[2022-06-04] MEDS: CHOLESTYRAMINE (W/ SUGAR) 4 GM POWD.PACK PO ×2 (10:23→17:49)
--- NOTE | 2022-06-04 11:26 | PM.IMPN ---
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 No weight loss. He was sent to the emergency department after discovering elevated liver enzymes. Liver tests were normal in February. 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 Transfer was initiated to a tertiary care facility for hepatobiliary consult and awaiting bed availability. (5) Pruritus: Code(s): L29.9 - Pruritus, unspecified Status: Acute Assessment and Plan: Related to hyperbilirubinemia. Continue cholestyramine. Hydroxyzine available as needed. (6) Transaminitis: Code(s): R74.01 - Elevation of levels of liver transaminase levels Status: Acute Assessment and Plan: AST/ALT fluctuating around 250-300 Bilirubin increased to 22 from 18 the last few days (7) Essential hypertension: Code(s): I10 - Essential (primary) hypertension Status: Acute Assessment and Plan: Hold lisinopril and HCTZ in light of YEHUDA (8) Benign prostatic hyperplasia: Code(s): N40.0 - Benign prostatic hyperplasia without lower urinary tract symptoms Status: Acute Assessment and Plan: Stable. Continue Proscar. (9) UTI (urinary tract infection) due to Enterococcus: Code(s): N39.0 - Urinary tract infection, site not specified; B95.2 - Enterococcus as the cause of diseases classified elsewhere Status: Acute Assessment and Plan: urology team called and stated urine culture came back with enterococcus, sens to cipro, patient will be started on this for a 14 day course, end date 06/13 Plan DVT prophylaxis with lovenox GI prophylaxis not indicated Code status full code Subjective Date/time seen: 06/04/22 11:26 Interval history: 87yo male with CKD, BPH and HTN here for painless jaundice. No overnight events noted. No chest pain or shortness of breath. No nausea, vomiting or diarrhea. No fevers or chills. itching still severe, requesting lower dose of hydroxyzine as it didn't help much but did make him feel sleepy. Review of Systems Review of Systems: 12 point review of systems was assessed and was negative except as noted in the HPI Exam Narrative: General: No acute distress, alert and oriented per baseline, jaundice continues to worsen HEENT: Atraumatic, normocephalic, mucous membranes moist, icteric sclera CV: Regular rate and rhythm, S1, S2 Lungs: Clear to auscultation bilaterally, no rales or crackles noted, no wheezes, good air entry Abdomen: Soft, nontender, nondistended Extremities: Normal to inspection, no edema Skin: No rashes noted, no lesions or wounds seen Psych: Euthymic, normal affect Objective Data Vital Signs Vital Signs: Vital Signs - 24 hr 06/03/22 14:00 06/03/22 21:35 06/03/22 20:00 Temperature 98 F 98.4 F Pulse Rate 76 83 Respiratory Rate 18 21 H Blood Pressure 109/63 Pulse Oximetry 100 100 100 Oxygen Delivery Room Air 06/04/22 06:00 06/04/22 08:22 Temperature 98.1 F Pulse Rate 75 Respiratory Rate 21 H 20 Blood Pressure
[2022-06-04 12:30] LABS: Anion Gap 10 mmol/L (8-16); Blood Urea Nitrogen 36 mg/dL (9-20); Calcium 8.3 mg/dL (8.4-10.2); Carbon Dioxide 17 mmol/L (22-30); Chloride 106 mmol/L (98-107); Estimated CRCL calculation 22 ml/min; Estimated Glomerular Filt Rate 23; Glucose 113 mg/dL (65-110); Potassium 3.9 mmol/L (3.4-5.0); Sodium 133 mmol/L (137-145)
[2022-06-04 14:13] VITALS: BP 98/58; PULSE 79; RESP 16; TEMP 36.3; O2SAT 100
[2022-06-04 16:14] LABS: Sodium Urine Random 34 meq/L
[2022-06-04 16:15] LABS: Creatinine Urine 129.6 mg/dL
[2022-06-04] MEDS: ENOXAPARIN 40 MG/0.4 ML SYRINGE SUB-Q (16:55)
[2022-06-04] MEDS: hydrOXYzine HCL 25 MG TABLET PO ×2 (16:56→22:18)
[2022-06-04 20:00] VITALS: PULSE 79; RESP 16; O2SAT 100
--- NOTE | 2022-06-04 21:30 | PC.NURSE ---
talked with Nikos at [facility] transfer center and updated on pt conditions,
[2022-06-04 22:00] VITALS: BP 103/73; PULSE 85; RESP 21; TEMP 36.8; O2SAT 100
--- NOTE | 2022-06-05 03:37 | PC.NURSE ---
[facility] transfer center called [facility] pt remains on waiting list,
--- NOTE | 2022-06-05 04:39 | PC.NURSE ---
eosinophil urine test sent to lab for analysis this shift, awaiting results.
[2022-06-05 05:01] LABS: Basophils Absolute Auto 0.1 K/mm3 (0.0-0.1); Basophils Percent Auto 0.6 % (0.2-1.2); Eosinophils Absolute Auto 0.1 K/mm3 (0-0.3); Hematocrit 28.1 % (42.0-52.0); Hemoglobin 9.3 g/dL (14.0-18.0); Immature Granulocyte Absolute 0.23 K/mm3 (0.00-0.031); Immature Granulocyte Percent A 2.9 % (0-0.5); Lymphocytes Absolute Auto 1.13 K/mm3 (0.9-3.2); Lymphocytes Percent Auto 14.2 % (18.3-44.2); Mean Corpuscular HGB Conc 33.1 g/dl (32-36); Mean Corpuscular Hemoglobin 30.6 pg (26-34); Mean Corpuscular Volume 92.4 fl (80-100); Mean Platelet Volume 9.9 fl (7.4-10.4); Monocytes Absolute Auto 1.2 K/mm3 (0.1-0.6); Monocytes Percent Auto 14.7 % (2.6-8.5); Neutrophils Absolute Auto 5.3 K/mm3 (1.3-6.7); Neutrophils Percent Auto 66.6 % (45.5-73.1); Platelet Count Result 367 k/mm3 (150-375); Red Blood Count 3.04 M/mm3 (4.6-6.20); Red Cell Distribution Width 21.3 % (11.5-14.5)
[2022-06-05 05:21] LABS: Alanine Aminotransferase 250 U/L (6-50); Albumin Level 3.1 g/dL (3.5-5.1); Alkaline Phosphatase 1149 U/L (38-126); Anion Gap 8 mmol/L (8-16); Aspartate Amino Transferase 199 U/L (17-59); Bilirubin,Total 20.9 mg/dL (0.2-1.3); Blood Urea Nitrogen 36 mg/dL (9-20); Carbon Dioxide 19 mmol/L (22-30); Chloride 102 mmol/L (98-107); Creatine Kinase 36 U/L (55-170); Estimated CRCL calculation 23 ml/min; Estimated Glomerular Filt Rate 25; Glucose 94 mg/dL (65-110); Potassium 3.8 mmol/L (3.4-5.0); Sodium 129 mmol/L (137-145)
[2022-06-05 05:28] LABS: Eosinophil Urine None Seen % (None Seen); Urine Eos QC 2nd Tech Confirmed
[2022-06-05 06:00] VITALS: BP 119/71; PULSE 78; RESP 21; TEMP 36.6; O2SAT 100
[2022-06-05] MEDS: FINASTERIDE 5 MG TABLET PO (08:05)
[2022-06-05] MEDS: OPTI-GEN TAB 2 TABLET PO (08:05)
[2022-06-05] MEDS: CIPROFLOXACIN 500 MG TAB PO (08:06)
--- NOTE | 2022-06-05 08:08 | PM.IMPN ---
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 No weight loss. He was sent to the emergency department after discovering elevated liver enzymes. Liver tests were normal in February. 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 Transfer was initiated to a tertiary care facility for hepatobiliary consult and awaiting bed availability. Also attempting to get outpatient placement of biliary stent through [facility]. (5) Pruritus: Code(s): L29.9 - Pruritus, unspecified Status: Acute Assessment and Plan: Related to hyperbilirubinemia. Continue cholestyramine. Hydroxyzine available as needed. (6) Transaminitis: Code(s): R74.01 - Elevation of levels of liver transaminase levels Status: Acute Assessment and Plan: AST/ALT fluctuating around 250-300, AST/ALT 199/250 today Bilirubin down to 20.9 (7) Essential hypertension: Code(s): I10 - Essential (primary) hypertension Status: Acute Assessment and Plan: Hold lisinopril and HCTZ in light of YEHUDA (8) Benign prostatic hyperplasia: Code(s): N40.0 - Benign prostatic hyperplasia without lower urinary tract symptoms Status: Acute Assessment and Plan: Stable. Continue Proscar. (9) UTI (urinary tract infection) due to Enterococcus: Code(s): N39.0 - Urinary tract infection, site not specified; B95.2 - Enterococcus as the cause of diseases classified elsewhere Status: Acute Assessment and Plan: urology team called and stated urine culture came back with enterococcus, sens to cipro, patient will be started on this for a 14 day course, end date 06/13 Plan DVT prophylaxis with lovenox GI prophylaxis not indicated Code status full code Subjective Date/time seen: 06/05/22 08:08 Interval history: 87yo male with CKD, BPH and HTN here for painless jaundice, concerning for cholangiocarcinoma, transfer pending to [facility] for biliary stent placement. No overnight events noted. No chest pain or shortness of breath. No nausea, vomiting or diarrhea. No fevers or chills. Continues with pruritus. Review of Systems Review of Systems: 12 point review of systems was assessed and was negative except as noted in the HPI Exam Narrative: General: No acute distress, alert and oriented per baseline, jaundice continues to worsen HEENT: Atraumatic, normocephalic, mucous membranes moist, icteric sclera CV: Regular rate and rhythm, S1, S2 Lungs: Clear to auscultation bilaterally, no rales or crackles noted, no wheezes, good air entry Abdomen: Soft, nontender, nondistended Extremities: Normal to inspection, no edema Skin: No rashes noted, no lesions or wounds seen Psych: Euthymic, normal affect Objective Data Vital Signs Vital Signs: Vital Signs - 24 hr 06/04/22 08:22 06/04/22 14:13 06/04/22 20:00 Temperature 97.3 F L Pulse Rate 79 79 Respiratory Rate 20 16 16 Blood Pressure 98/58 L Pulse Oximetry 100 100 100 Oxygen Delivery Room Air Room Air 06/04/22 22:00 06/05/22 06:00 Temperatur
[2022-06-05] MEDS: CHOLESTYRAMINE (W/ SUGAR) 4 GM POWD.PACK PO ×2 (09:23→19:03)
--- NOTE | 2022-06-05 11:16 | WPDGIPROGNO ---
Progress Note: A&P Assessment and Plan (1) Jaundice: Code(s): R17 - Unspecified jaundice Status: Acute Assessment and Plan: Patient with ongoing obstructive jaundice. Complains dark urine and light stool. (2) Obstructive jaundice: Code(s): K83.1 - Obstruction of bile duct Status: Acute Assessment and Plan: CT scan imaging reveals obstruction of the proximal bile duct. Mass in the hilum of the liver. May represent cholangiocarcinoma. Carcinomatosis also identified. Patient will need biliary stenting. Endoscopic ultrasound biopsy also would be prudent as no biopsies have yet been done. This appears to be too high for are service to stent. No endoscopic ultrasound at our facility. Await transfer to tertiary care center. 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 No fevers reported. Denies abdominal pain. Patient still reports jaundice. Review of Systems Review of Systems: Review of systems noncontributory. Exam Narrative: Physical exam reveals patient be alert. Comfortable at rest. HEENT exam reveals scleral icterus. Lungs are clear. Heart without murmur. Abdomen bowel sounds present soft nontender. Objective Data Vital Signs Vital Signs: Vital Signs - 24 hr 06/04/22 14:13 06/04/22 20:00 06/04/22 22:00 Temperature 97.3 F L 98.2 F Pulse Rate 79 79 85 Respiratory Rate 16 16 21 H Blood Pressure 98/58 L 103/73 Pulse Oximetry 100 100 100 Oxygen Delivery Room Air 06/05/22 06:00 06/05/22 08:06 Temperature 97.9 F Pulse Rate 78 Respiratory Rate 21 H Blood Pressure 119/71 Pulse Oximetry 100 Oxygen Delivery Room Air Intake/Output Intake/Output: Intake & Output 06/02/22 06/03/22 06/04/22 06/05/22 23:59 23:59 23:59 23:59 Intake Total 1480 1940 2410 960 Output Total 600 300 Balance 1480 1940 1810 660 Meds/Results Medications: Active Medications Generic Name Dose Route Start Last Admin Trade Name Freq PRN Reason Stop Dose Admin Cholestyramine Resin 4 gm 05/27/22 18:00 06/05/22 09:23 Cholestyramine (W/ Sugar) 4 Gm Powd.Pack PO 4 gm BID@1000,1800 [facility] Administration Ciprofloxacin 500 mg 06/05/22 09:00 06/05/22 08:06 Ciprofloxacin 500 Mg Tab PO 06/13/22 08:59 500 mg Q24H [facility] Administration Enoxaparin Sodium 40 mg 05/28/22 17:00 06/04/22 16:55 Enoxaparin 40 Mg/0.4 Ml Syringe SUB-Q 40 mg DAILY@1700 [facility] Administration Finasteride 5 mg 05/27/22 09:00 06/05/22 08:05 Finasteride 5 Mg Tablet PO 5 mg DAILY [facility] Administration Hydrocortisone 1 applic 06/05/22 10:31 Hydrocortisone 1% 30 Gm Cream TOPICAL Q8HR PRN itching if atarax is ineffective Hydroxyzine HCl 0 mg 06/04/22 13:16 06/04/22 22:18 Hydroxyzine Hcl 25 Mg Tablet PO 50 mg Q4H PRN Administration Itching Multivitamins/Minerals 2 tablet 05/27/22 09:00 06/05/22 08:05 Opti-Gen Tab PO 06/26/22 08:59 2 tablet DAILY [facility] Administration Radiology Results: ITS Impressions Abdomen/Pelvis CT 05/26/22 14:17 IMPRESSION: 1. Peritoneal carcinomatosis. 2. Severe intrahepatic biliary duct dilatation. Areas of intrahepatic biliary stenosis suggest occult malignancy. Extrahepatic bile duct dilatation. Consider MRCP without and with contrast. 3. Periportal lymphadenopathy. Upper Quadrant Ultrasound 05/26/22 14:31 Impression: Intrahepatic biliary dilatation. Obstructing biliary/hepatic/pancreatic mass is a consideration. CT scan has already been ordered for this patient. Gallbladder sludge and small stones. MRCP 05/29/22 10:57 IMPRESSION: 1. Infiltrating mass of the liver hilum causing marked intrahepatic biliary dilatation. Findings suspicious for cholangiocarcinoma. 2. Peritoneal carcinomatosis with m
--- NOTE | 2022-06-05 12:03 | PM.CNNEP ---
Assessment and Plan Assessment and plan (1) YEHUDA (acute kidney injury): Code(s): N17.9 - Acute kidney failure, unspecified Status: Acute Assessment and Plan: etiology not entirely clear evaluation to date: renal ultrasound without obstruction urine electrolytes are prerenal urine eosinophils negative CPK low possible peak/plateau of creatinine at 2.6mg/dl (?) still making urine and no critical electrolytes follow trend of repeat labs (2) Hyponatremia: Code(s): E87.1 - Hypo-osmolality and hyponatremia Status: Acute Assessment and Plan: due to YEHUDA +/- underlying malignancy follow trend of sodium TSH okay follow trend -- consider check cortisol, SPEP, UPEP (if not already done so) (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 Status: Acute Assessment and Plan: as noted by imaging studies (4) Obstructive jaundice: Code(s): K83.1 - Obstruction of bile duct Status: Acute Assessment and Plan: further imaging reveals obstruction of the proximal bile duct, mass in the hilum of the liver which may represent cholangiocarcinoma biliary stenting and possible endoscopic ultrasound biopsy needed transfer to tertiary care center in progress[place] Gastroenterology following (5) Essential hypertension: Code(s): I10 - Essential (primary) hypertension Status: Acute Assessment and Plan: reasonable control follow trend of hemodynamics Long extensive discussion (greater than 20 minutes) with the patient as well as her his at bedside regarding the issue of his acute kidney injury/acute renal failure and the apparent need for transfer to another facility for further testing/treatment of his obstructive jaundice in the context of a possible cholangiocarcinoma as well as peritoneal carcinomatosis. Will continue to follow. History of Present Illness Reason for Consult Consult date: 06/05/22 Reason for consult: acute renal failure Chief Complaint Chief complaint: jaundice/carcinomatosis History of Present Illness Narrative: The patient is 87-year-old male with a past medical history as outlined below who presented to [facility] emergency room almost 10 days ago for further evaluation of elevated liver function tests. About a month ago he noticed that his urine was darker than usual. At that time he was diagnosed with a urinary tract infection and prescribed antibiotics which he took for approximately 5 days before was discontinued due to what appeared to be angioedema. Despite the treatment of the presumed urinary tract infection, his urine continued to look dark and his apparently noted that he seemed to be somewhat jaundiced. He Lat he subsequently had labs done by his primary care physician who noted a significant elevation in his liver function tests which prompted him to come to the ER for further assessment. Workup and evaluation emergency room demonstrated the patient to be hemodynamically stable and repeat testing confirmed his significantly elevated liver function tests including his bilirubin, AST, ALT, and alk-phos. His CBC and renal function were unremarkable. A CT scan of his abdomen pelvis demonstrated severe intrahepatic biliary duct dilation with areas of biliary stenosis suggestive of occult malignancy, extrahepatic bile duct dilation, and peritoneal carcinomatosis. Transfer to a tertiary care facility was initiated in the ER but there is no bed available at that time and hence he was subsequently admitted to the hospital for further evaluation and therapy. Since his admission, he has been seen in consultation by Gastroenterology who once again recommend transfer to another facility for further invasive testing is unavailable here at [facility]. More concerning is the fact that several days ago his creatinine started
[2022-06-05] MEDS: hydrOXYzine HCL 25 MG TABLET PO (13:34)
[2022-06-05 14:00] VITALS: BP 96/61; PULSE 72; RESP 16; TEMP 36.8; O2SAT 100
[2022-06-05] MEDS: ENOXAPARIN 40 MG/0.4 ML SYRINGE SUB-Q (17:29)
[2022-06-05] MEDS: diphenhydrAMINE HCl CAP 25 MG CAPSULE PO ×2 (17:58→22:26)
[2022-06-05 20:00] VITALS: PULSE 75; RESP 18; O2SAT 99
[2022-06-05 21:21] VITALS: BP 102/50; PULSE 75; RESP 18; TEMP 36.6; O2SAT 99
[2022-06-06] MEDS: diphenhydrAMINE HCl CAP 25 MG CAPSULE PO (03:47)
[2022-06-06 05:02] VITALS: BP 115/61; PULSE 74; RESP 17; TEMP 36.8; O2SAT 100
[2022-06-06 06:22] LABS: Basophils Absolute Auto 0.1 K/mm3 (0.0-0.1); Basophils Percent Auto 0.8 % (0.2-1.2); Eosinophils Absolute Auto 0.1 K/mm3 (0-0.3); Eosinophils Percent Auto 0.8 % (0-4.4); Hematocrit 29.1 % (42.0-52.0); Hemoglobin 9.5 g/dL (14.0-18.0); Immature Granulocyte Absolute 0.23 K/mm3 (0.00-0.031); Immature Granulocyte Percent A 3.2 % (0-0.5); Lymphocytes Absolute Auto 1.01 K/mm3 (0.9-3.2); Lymphocytes Percent Auto 13.9 % (18.3-44.2); Mean Corpuscular HGB Conc 32.6 g/dl (32-36); Mean Corpuscular Hemoglobin 30.2 pg (26-34); Mean Corpuscular Volume 92.4 fl (80-100); Mean Platelet Volume 10.2 fl (7.4-10.4); Monocytes Absolute Auto 1.1 K/mm3 (0.1-0.6); Monocytes Percent Auto 15.4 % (2.6-8.5); Neutrophils Absolute Auto 4.8 K/mm3 (1.3-6.7); Neutrophils Percent Auto 65.9 % (45.5-73.1); Platelet Count Result 418 k/mm3 (150-375); Red Blood Count 3.15 M/mm3 (4.6-6.20); Red Cell Distribution Width 21.3 % (11.5-14.5); White Blood Count 7.3 K/mm3 (4.5-10.0)
[2022-06-06 06:41] LABS: Alanine Aminotransferase 245 U/L (6-50); Albumin Level 3.3 g/dL (3.5-5.1); Alkaline Phosphatase 1230 U/L (38-126); Anion Gap 8 mmol/L (8-16); Aspartate Amino Transferase 200 U/L (17-59); Bilirubin,Total 23.8 mg/dL (0.2-1.3); Blood Urea Nitrogen 38 mg/dL (9-20); Calcium 8.5 mg/dL (8.4-10.2); Carbon Dioxide 19 mmol/L (22-30); Chloride 101 mmol/L (98-107); Estimated CRCL calculation 25 ml/min; Estimated Glomerular Filt Rate 26; Glucose 91 mg/dL (65-110); Potassium 4.1 mmol/L (3.4-5.0); Sodium 128 mmol/L (137-145)
--- NOTE | 2022-06-06 06:52 | PC.NURSE ---
[facility] transfer center called no bed available at this time spoke with Mariola [phone]
[2022-06-06] MEDS: FINASTERIDE 5 MG TABLET PO (08:04)
[2022-06-06] MEDS: OPTI-GEN TAB 2 TABLET PO (08:04)
[2022-06-06] MEDS: CIPROFLOXACIN 500 MG TAB PO (08:04)
[2022-06-06] MEDS: CHOLESTYRAMINE (W/ SUGAR) 4 GM POWD.PACK PO (09:13)
--- NOTE | 2022-06-06 11:04 | PM.DS ---
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 No weight loss. He was sent to the emergency department after discovering elevated liver enzymes. Liver tests were normal in February. 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 Transfer was initiated to a tertiary care facility for hepatobiliary consult and awaiting bed availability. Also attempting to get outpatient placement of biliary stent through [facility]. (5) Pruritus: Code(s): L29.9 - Pruritus, unspecified Status: Acute Assessment and Plan: Related to hyperbilirubinemia. Continue cholestyramine. Hydroxyzine available as needed. (6) Transaminitis: Code(s): R74.01 - Elevation of levels of liver transaminase levels Status: Acute Assessment and Plan: AST/ALT fluctuating around 250-300, AST/ALT 199/250 today Bilirubin down to 20.9 (7) Essential hypertension: Code(s): I10 - Essential (primary) hypertension Status: Acute Assessment and Plan: Hold lisinopril and HCTZ in light of YEHUDA (8) Benign prostatic hyperplasia: Code(s): N40.0 - Benign prostatic hyperplasia without lower urinary tract symptoms Status: Acute Assessment and Plan: Stable. Continue Proscar. (9) UTI (urinary tract infection) due to Enterococcus: Code(s): N39.0 - Urinary tract infection, site not specified; B95.2 - Enterococcus as the cause of diseases classified elsewhere Status: Acute Assessment and Plan: urology team called and stated urine culture came back with enterococcus, sens to ashley, patient will be started on this for a 14 day course, end date 06/13 Plan DVT prophylaxis with lovenox GI prophylaxis not indicated Code status full code DS: Summary Hospital Course Hospital Course: 87-year-old male with history of hypertension, chronic kidney disease benign prostatic hypertrophy is presenting with elevated LFTs. He saw Dr. Bonds for dark urine. He also bili was found to have significantly elevated LFTs with severe hyperbilirubinemia. Concern was for peritoneal carcinomatosis due to severe biliary duct dilation noted on CT abdomen and pelvis. Attempt was made to transfer patient to tertiary care facility with hepatology support but was unable to be achieved. Therefore patient was admitted to be stabilized while awaiting a bed. MRCP performed showing liver mass concerning for cholangiocarcinoma. This would require a stent within ERCP was unable to be achieved at [place]. Patient developed acute kidney injury as well as hyponatremia of unknown etiology. Nephrology was consulted and unable to determine the etiology as well. Symptoms slowly recovered with gentle IV fluid hydration. Patient was ultimately arranged with outpatient ERCP and biliary stent scheduled at [facility] and discharged in stable condition. Time Spent with Patient Time attestation: Total time spent providing and/or coordinating discharge services:
== END 2022-06-06 12:16 | disposition home or self-care (01) | DRG 374 ==
LOC: ANHED 17:39 → ANH2MED 18:14
PROVIDERS: Emergency Medicine; Internal Medicine; Internal Medicine Nephrology; Physician Assistant; Admitting Provider Family Medicine; Emergency Provider Emergency Medicine; PCP Nurse Practitioner; Visit Provider Student in an Organized Health Care Education/Training Program
DX: C78.6 Secondary malignant neoplasm of retroperitoneum and peritoneum (principal); K83.1 Obstruction of bile duct; N17.9 Acute kidney failure, unspecified; E87.1 Hypo-osmolality and hyponatremia; C22.1 Intrahepatic bile duct carcinoma; N39.0 Urinary tract infection, site not specified; B95.2 Enterococcus as the cause of diseases classified elsewhere; T50.2X5A Adverse effect of carbonic-anhydrase inhibitors, benzothiadiazides and other diuretics, initial encounter; Z20.822 Contact with and (suspected) exposure to COVID-19; I10 Essential (primary) hypertension; N40.0 Benign prostatic hyperplasia without lower urinary tract symptoms; M19.90 Unspecified osteoarthritis, unspecified site; I12.9 Hypertensive chronic kidney disease with stage 1 through stage 4 chronic kidney disease, or unspecified chronic kidney disease; N18.30 Chronic kidney disease, stage 3 unspecified; L29.8 Other pruritus; E78.2 Mixed hyperlipidemia; E86.0 Dehydration; Z96.641 Presence of right artificial hip joint; Z98.42 Cataract extraction status, left eye; Z98.41 Cataract extraction status, right eye; Z96.1 Presence of intraocular lens; Z90.49 Acquired absence of other specified parts of digestive tract; Z87.891 Personal history of nicotine dependence
CPT/HCPCS: 36415; 74176; 74183; 76376; 76705; 76775; 80048; 80053; 80074; 81001; 82378; 82550; 82570; 83690; 83735; 83930; 83935; 84300; 84443; 84540; 85025; 85027; 85055; 85610; 85730; 85999; 86301; 87636; 93005; 99285; A9270; A9577; J0744; J1650; J7030